=== PATIENT | male | born 1965 | race Caucasian/White ===

== ENCOUNTER 2021-01-07 21:38 | Emergency (ER) | payer OTHER, SELFPAY ==
--- NOTE | ~2021-01-07 | XR_ITS ---
EXAMINATION: XR CHEST CLINICAL INFORMATION: Fall COMPARISON: None TECHNIQUE: Frontal view of the chest was obtained. FINDINGS: There are mild streaky opacities within the lower lungs bilaterally, potentially subsegmental atelectasis, however infiltrate or aspiration could also have this appearance. No pleural effusion or pneumothorax. Normal heart size and pulmonary vascularity. No acute or suspicious osseous abnormalities. XR/XR chest 1V IMPRESSION: No displaced rib fractures or pneumothorax. Bilateral lower lung streaky opacities with diagnostic considerations as above
--- NOTE | ~2021-01-07 | CT_ITS ---
EXAMINATION: CT CHEST WITHOUT CONTRAST CLINICAL INFORMATION: Sternal pain status post trauma COMPARISON: None TECHNIQUE: Multidetector volumetric CT imaging of the chest was done. Axial MIP volume rendering provided. Sagittal and coronal reformatted images were obtained. This CT examination was performed using dose optimization techniques as appropriate, variously including the following: *Automated exposure control *Adjustment of mA and/or kV according to patient size (this includes techniques or standardized protocols for targeted exams where dose is matched to indication/reason for exam; i.e. extremities or head) *Use of iterative reconstruction technique DLP: 343 mGy-cm FINDINGS: LUNGS: Mild upper lobe predominant centrilobular emphysema. Mild diffuse bronchial wall thickening without bronchiectasis. There are scattered pulmonary nodules measuring 4 mm or less throughout both lungs (see vaughan images). No groundglass disease. No parenchymal consolidation or pneumothorax. MEDIASTINUM: Normal heart size. No pericardial effusion. No new cephalhematoma. Great vessels normal caliber. PLEURA: There is no pleural effusion. No pleural mass or thickening. AXILLA: No lymphadenopathy. UPPER ABDOMEN: Unremarkable. OSSEOUS STRUCTURES: There is a nondisplaced transversely oriented fracture through the upper sternum at the level of the third costal cartilage, with interval inward buckling of the outer cortex. Fracture is not appear to involve the posterior cortex of the sternum. Sternomanubrial articulation intact. No rib fractures. CT/CT chest wo con IMPRESSION: * Nondisplaced unicortical fracture involving the upper sternum as described. * No additional fractures. * Minimal emphysema and medium airway inflammation. * Scattered pulmonary nodules measuring 4 mm or less. Fleischner Society guidelines indicate that a follow-up CT chest can be performed in one year if clinically indicated in this presumptively high-risk patient.
[2021-01-07 21:41] VITALS: BMI 27.4
--- NOTE | 2021-01-07 21:42 | ECG_ITS ---
Test Reason : CHEST PAIN Blood Pressure : / mmHG Vent. Rate : 098 BPM Atrial Rate : 098 BPM P-R Int : 170 ms QRS Dur : 092 ms QT Int : 358 ms P-R-T Axes : 049 033 031 degrees QTc Int : 457 ms Normal sinus rhythm Normal ECG No previous ECGs available Referred By: Generic ED Physician Electronically Signed By:SUE SILVERIO
[2021-01-07 22:43] VITALS: BP 163/116; PULSE 98; RESP 18; O2SAT 96; BMI 27.4
--- NOTE | 2021-01-07 23:49 | ED.FALL ---
HPI - Fall General Chief Complaint: Fall Stated Complaint: body weakness, headache Time Seen by Provider: 01/07/21 23:15 Source: patient Mode of arrival: ambulatory Limitations: no limitations History of Present Illness HPI Narrative: 55 y/o male with history of untreated HTN presents to the ER with central chest pain in the setting of tripping and falling into a large plastic pipe earlier today. The fall knocked the wind out of him and he has had central chest pain since, worse with movement and coughing. He did not hit his head or lose consciousness. No other injuries. He is not on anticoagulation. He denies SOB or HERBERT. MD complaint: fall Onset (ago): hour(s) Fall from: standing Fall witnessed: yes, by bystander Place fall occurred: street Loss of consciousness: none Prolonged down time: no Symptoms prior to fall: none Context: tripped/slipped Location of injury: chest Severity: severe Severity scale (1-10): 10 Quality: sharp and aching Associated symptoms (after fall): chest pain Related Data Previous Rx's Medication Instructions Recorded oxycodone 5 mg tablet 5 mg PO Q6H PRN #10 tab 01/08/21 Allergies Allergy/AdvReac Type Severity Reaction Status Date / Time No Known Allergies Allergy Verified 01/07/21 21:42 Review of Systems Review of Systems: Constitutional: No Fever, No Chills ENT/Mouth: No sore throat, No Rhinorrhea, No Swallowing Difficulty Cardiovascular: + Chest Pain, No SOB, No Orthopnea, No Edema Respiratory: No Cough, No Sputum, No Wheezing, No dyspnea Gastrointestinal: No Nausea, No Vomiting, No Diarrhea, No abdominal Pain Genitourinary: No Dysuria, No Urinary Frequency, No Hematuria Musculoskeletal: No joint pain, No Myalgias Skin: No Skin Lesions, No rash Neuro: No Weakness, No Numbness, No Dizziness, No Headache Heme/Lymph: No Bruising, No Lymphadenopathy PMFSH Past Medical History Attestation statement: The following information was validated with the patient. Medical History (Updated 01/08/21 @ 01:00 by JONATHON Parker) Hypertension Social History Social History Advance Directives: No Advance Directives Information Provided: Yes Physical Exam Vital Signs: Vital Signs: Last Vital Signs Pulse 98 01/07/21 22:43 Resp 18 01/07/21 22:43 BP 163/116 H 01/07/21 22:43 Pulse Ox 96 01/07/21 22:43 Body Mass Index 27.4 Appearance: Alert. Oriented X3. No acute distress. Eyes: Pupils equal, round and reactive to light. ENT: Pharynx normal. Neck: Normal inspection. Neck supple. CVS: Normal heart rate and rhythm. Pulses normal. Respiratory: No respiratory distress. Breath sounds normal. Upper sternal tenderness, no crepitus Abdomen: Soft and nontender. +BS x4 Skin: Skin warm and dry. Normal skin color. Normal skin turgor. No rashes. Extremities: No lower extremity edema. Atraumatic Neuro: Oriented X 3. No motor deficit. No sensory deficit. Course Course Course Narrative: 55 y/o male presenting with central chest pain s/p slip and fall onto a plastic pipe. XR is negative for acute fracture. EKG without STEMI. Given his tenderness on exam will get CT chest to r/o fracture. Reevaluation(s) Reevaluation #1: CT scan showing There is a nondisplaced transversely oriented fracture through the upper sternum at the level of the third costal cartilage, with interval inward buckling of the outer cortex. Fracture is not appear to involve the posterior cortex of the sternum. Sternomanubrial articulation intact. No rib fractures. No signs of other injuries. Abd is soft. He is breathing comfortably. He has an appointment with his PCP on 01/10. Will d/c with narcotic for pain control and have him f/u with his PCP. Stable for discharge home. Discharge Plan Discharge Clinical Impression: Sternal fracture Qualifiers: Encounter type: initial encounter Sternal location: body of sternum Fracture type: closed Qualified Code(s): S22.22XA - Fracture of body of sternum, initial encounter for closed fracture Patient Disposition: Home, Self-Care Additional Instructions: Your CT scan today showed a fracture of your breast bone, also known as your sternum. It is important to have close follow up with your doctor for this. Recommend taking several deep breaths per hour to keep your lungs well expanded and prevent pneumonia. Take the prescribed medication as needed for severe pain - do not drive after taking this medication. Take Tylenol and Motrin as directed for pain as well. Follow up with your doctor as scheduled on 01/10/21. If you develop new or worsening symptoms call 911 or come back to the ER for further evaluation. Prescriptions: New oxycodone 5 mg tablet 5 mg PO Q6H PRN (Reason: pain) Qty: 10 RF: 0
[2021-01-08] MEDS: Acetaminophen 325 MG TABLET 975 MG PO (00:09)
[2021-01-08] MEDS: oxyCODONE HCl Immed Release 5 MG TABLET PO (01:12)
== END 2021-01-08 01:16 | disposition home or self-care (01) ==
PROVIDERS: Emergency Provider Emergency Medicine; PCP Internal Medicine
DX: S22.22XA Fracture of body of sternum, initial encounter for closed fracture (principal); M79.10 Myalgia, unspecified site; M54.6 Pain in thoracic spine; R07.9 Chest pain, unspecified; I10 Essential (primary) hypertension; W01.0XXA Fall on same level from slipping, tripping and stumbling without subsequent striking against object, initial encounter; Y93.9 Activity, unspecified; Y92.9 Unspecified place or not applicable; Y99.9 Unspecified external cause status; Z79.899 Other long term (current) drug therapy
CPT/HCPCS: 71045; 71250; 93005; 99285

== ENCOUNTER → 2025-02-07 08:15 | Outpatient (BNV) | payer MEDICAID, SELFPAY | PROVIDERS: Admitting Provider Physician Assistant Medical; Emergency Provider Emergency Medicine; PCP Dentist General Practice; Visit Provider Psychiatry & Neurology Neurology | DX: R40.0 Somnolence (principal); Z86.79 Personal history of other diseases of the circulatory system | CPT/HCPCS: 95819 ==

== ENCOUNTER 2025-02-07 16:58 | Inpatient (IN) | payer MEDICAID, SELFPAY ==
[2025-02-07] VITALS (32 sets, daily range): BP systolic 83–221; BP diastolic 46–120; PULSE 53–160; RESP 16–35; TEMP 33–37; O2SAT 95–100; BMI 29.0; BMI 26.7; BMI 28.5
--- NOTE | 2025-02-07 | EEG_ITS ---
Roomed Performed:?1st floor Reason: ? seizure History: H/O hypertension - Patient was brought to ED for increasing somnolent and obtunded, upon arrival to ED patient was unresponsive. Patient was given Narcan and then noted to have some staring and gazing. Patient was sedated and intubated for airway protection. Medication: propofol, fentanyl, naloxone Technical description Photic stimulation: completed Hyperventilation:?omitted Behavioral state: pt sedated, sedation turned of at start of tracing State of Consciousness: awake and sleep Skull defect: none Sedation: none Handedness: unknown Duration of study:? 26 min ?30 sec Description: This is a 16 channel EEG with an EKG lead. Patient is reported awake and sleep during the tracing. Background EEG rhythm is low amplitude fast with no obvious asymmetry or paroxysmal tendency. Photic stimulation does not produce any significant abnormality. Hyperventilation is not performed. Cardiac lead does not reveal any significant abnormality. No sharp wave spikes or paroxysmal tendency noted. Impression: Unremarkable EEG MTDD
--- NOTE | ~2025-02-07 | CT_ITS ---
CLINICAL HISTORY: altered CT head without contrast Comparison: None provided Findings: Scattered subcortical and periventricular hypoattenuation, likely in keeping with chronic small vessel ischemic disease. Parenchymal volume loss with compensatory prominence of the ventricles and CSF spaces. No acute territorial infarction, intracranial hemorrhage, midline shift or hydrocephalus. Encephalomalacia/gliosis in the posterior left parietal lobe and occipital lobe. Cavum septum pellucidum and vergae. There is no sinus or mastoid fluid. The orbits are within normal limits. No skull fracture. IMPRESSION: 1. No acute intracranial abnormality. 2. Additional findings as described. This document has been electronically signed by: Kushal Santana MD on 02/07/2025 18:09:11
--- NOTE | ~2025-02-07 | XR_ITS ---
CLINICAL HISTORY: post-intubation 1 view chest x-ray Comparison: None provided Findings: Mild left lower lobe atelectasis. No significant pleural effusion or pneumothorax. ETT tip terminates 3.5 cm above gilberto. Prominent cardiac silhouette. No acute fracture. Enteric tube tip projects over the distal stomach. IMPRESSION: 1. ETT tip terminates 3.5 cm above gilberto. 2. Mild left lower lobe atelectasis. This document has been electronically signed by: Kushal Santana MD on 02/07/2025 18:10:02
--- NOTE | 2025-02-07 17:02 | ECG_ITS ---
Test Reason : overdose Blood Pressure : */* mmHG Vent. Rate : 96 BPM Atrial Rate : 96 BPM P-R Int : 164 ms QRS Dur : 88 ms QT Int : 388 ms P-R-T Axes : 65 44 23 degrees QTcB Int : 490 ms Normal sinus rhythm Prolonged QT Abnormal ECG When compared with ECG of 07-Jan-2021 21:46, No significant change was found Referred By: Allen Anders Electronically Signed By: LB FITZPATRICK MD
--- NOTE | 2025-02-07 17:02 | ED.GENADULT ---
HPI - General Adult General Chief complaint: Respiratory Arrest Stated complaint: OD Time Seen by Provider: 02/07/25 17:01 History of Present Illness ED Provider: Chago STEINBERG narrative: The patient is a 59-year-old male. He has a history of hypertension in his family thinks that he is on an antihypertensive medication but they do not know what he is on. Apparently he was in his normal state of health earlier today and seemed fine according to his family. This afternoon he in his brother when shopping. After shopping the brother dropped the patient off to meet some other people. Later the patient called the brother to pick him up. The brother says that when he picked up the patient the patient was awake. The brother then drove to their house in [place]. By the time they got to their house however the patient was unresponsive. The brother summoned family members. The patient's daughter came out and could not wake up the patient. She then drove him from [place] to the emergency room here. Apparently the patient was unconscious in the car and had to be lifted out of the car. He was unresponsive and cyanotic. He was given nasal naloxone and brought into the emergency room. After receiving the naloxone the patient became very animated but not awake. He was flailing his extremities and seemed to be staring off to the left. He would not answer questions or engage. He was nonverbal. The family suspects that the people with whom the patient has been dropped off earlier today might have given him drugs. Related Data Previous Rx's ?Medication ?Instructions ?Recorded oxycodone 5 mg tablet 5 mg PO Q6H PRN pain #10 tabs 01/08/21 Allergies Allergy/AdvReac Type Severity Reaction Status Date / Time No Known Allergies Allergy Verified 02/07/25 17:09 Review of Systems Review of Systems: Yes Unobtainable due to mental status [facility] Past Medical History Medical History Hypertension Social History Social History Household Members: Unknown / Unable to assess Housing: Unknown / Unable to assess Patient Tobacco Use Status: Tobacco use Unknown Advance Directives: No Advance Directives Information Provided: No Do you have a plan to hurt others: No Plan Nutrition Risks: On aspiration precautions Physical Exam ED Vital Signs: Vital Signs - 24 hr 02/07/25 17:06 02/07/25 17:17 02/07/25 17:18 Temperature Pulse Rate 160 H 140 H 140 H Respiratory Rate 35 H 35 H 35 H Blood Pressure 163/101 H 141/82 H 141/82 H Pulse Oximetry 95 Oxygen Delivery Method Room Air Oxygen Flow Rate Fraction of Inspired Oxygen 02/07/25 17:20 02/07/25 17:24 02/07/25 17:24 Temperature Pulse Rate 130 H 120 H Respiratory Rate 18 16 18 Blood Pressure 148/92 H 120/79 Pulse Oximetry 100 100 Oxygen Delivery Method Mechanical Ventilation Mechanical Ventilation Oxygen Flow Rate 25 25 Fraction of Inspired Oxygen 02/07/25 17:39 02/07/25 17:49 02/07/25 17:49 Temperature Pulse Rate 151 H 146 H 146 H Respiratory Rate 16 20 20 Blood Pressure 221/115 H 200/120 H 200/100 H Pulse Oximetry 99 99 99 Oxygen Delivery Method Mechanical Ventilation Oxygen Flow Rate Fraction of Inspired Oxygen 02/07/25 17:51 02/07/25 17:57 02/07/25 18:02 Temperature 97.3 F Pulse Rate 130 H 137 H Respiratory Rate 22 H 21 H Blood Pressure 183/107 H 192/114 H Pulse Oximetry 100 100 Oxygen Delivery Method Mechanical Ventilation Mechanical Ventilation Oxygen Flow Rate Fraction of Inspired Oxygen 60 100 02/07/25 18:06 02/07/25 18:22 02/07/25 18:28 Temperature Pulse Rate 129 H 125 H 128 H Respiratory Rate 20 24 H 22 H Blood Pressure 183/112 H 170/109 H 182/105 H Pulse Oximetry 99 100 100 Oxygen Delivery Method Oxygen Flow Rate Fraction of Inspired Oxygen 02/07/25 18:38 02/07/25 18:59 02/07/25 19:14 Temperature 97 F 97.2 F 97.3 F Pulse Rate 100 96 84 Respiratory Rate 20 20 18 Blood Pressure 105/64 143/93 H 121/73 Pulse Oximetry 98 100 100 Oxygen Delivery Method Mechanical Ventilation Mechanical Ventilation Mechanical Ventilation Oxygen Flow Rate Fraction of Inspired Oxygen 40 40 BMI result Body Mass Index 26.7 Const Other: When I 1st encountered the patient he was being wheeled into the emergency room after having received nasal naloxone out front. He was flailing in the stretcher, staring off to the left, not answering questions. HENMT Other: There was no obvious facial asymmetry. Mucous membranes were moist. Eyes Other: The patient seemed to have a left gaze preference. Pupils were round and equal. Conjunctivae were clear. Neck Other: No obvious nuchal rigidity. Resp Effort & Inspection: normal respiratory effort Auscultation: clear to auscultation bilaterally Cardio Rate: tachycardic Rhythm: regular rhythm Heart sounds: S1 normal heart sound present and S2 normal heart sound present GI Other: Abdomen was soft and seems nontender. Skin Other: The skin was diaphoretic. Neuro Other: The patient had an altered mental status. He was flailing his extremities. He seemed to possibly have a left gaze preference. He was not responding to questions and he did not seem coherent. I was uncertain as to whether his abnormal movements were seizure movements or some some kind of manifestation of discomfort. He was nonverbal. He did not seem to have any facial asymmetry. His tone seems symmetrical. Extrem Other: No signs of trauma to the extremities. No peripheral edema. Course Course Course Narrative: This is an RME done by JONATHON Fleming: Additional HPI, ROS, PE not included below will be deferred to primary provider. 59 yo m presents via private veichle. Patient was unresponsive in the front seat. When this PA-C and triage nurse arrived patient was not breathing. 1 4mg intranasal narcan was given without response an additional 4 mg intranasal narcan was given still no response he was carried out of his veichle and put on a stretcher, immediatly this PA-C began bagging. Patient started waking up after about 1 minute of bagging. He woke up aggitated and disoriented. No signs of trauma. Family state he kind of has a drug problem. Unclear what he took. Medications Administered Generic Name Dose Route Start Last Admin Trade Name Freq PRN Reason Stop Dose Admin Chlorhexidine Gluconate 15 ml 02/07/25 19:27 02/07/25 20:18 Chlorhexidine Gluc Oral Rinse 15 Ml Mouthwash BUCCAL Not Given TID REGGIE Enoxaparin Sodium 40 mg 02/07/25 20:00 02/07/25 20:17 Enoxaparin Sodium 40 Mg/0.4 Ml Syringe SUBCUT 40 mg Q24H REGGIE Administration Propofol 1,000 mg in 100 mls @ 0 mls/hr 02/07/25 17:30 02/07/25 21:37 Diprivan IVCONT 40 mcg/kg/min .Q0M REGGIE 19.6 mls/hr Protocol Titration Per Protocol Fentanyl 1,000 mcg in 100 mls @ 0 mls/hr 02/07/25 18:30 02/07/25 21:34 Sublimaze/Ns IVCONT 75 mcg/hr .Q0M REGGIE 7.5 mls/hr Protocol Titration Per Protocol Piperacillin Sod/Tazobactam 50 mls @ 100 mls/hr 02/07/25 20:00 02/07/25 20:31 Sod 3.375 gm/ Sodium Chloride IV Infused Q6H REGGIE Infusion Insulin Human Lispro 0 unit 02/07/25 19:30 02/07/25 20:06 Insulin Lispro 100 Unit/Ml 3 Ml Vial SUBCUT Not Given Q6H [facility] Protocol Discontinued Medications Generic Name Dose Route Start Last Admin Trade Name Freq PRN Reason Stop Dose Admin Diazepam 10 mg 02/07/25 17:01 02/07/25 17:06 Diazepam 10 Mg/2 Ml Cartridge IVPUSH 02/07/25 17:02 10 mg STAT STA Administration Levetiracetam 3,000 mg/ Sodium 130 mls @ 520 mls/hr 02/07/25 18:40 02/07/25 19:20 Chloride IV 02/07/25 18:54 Infused ONCE ONE Infusion Lactated Ringer's 1,000 mls @ 999 mls/hr 02/07/25 19:45 02/07/25 21:11 Lr IV 02/07/25 20:45 Infused .Q1H1M REGGIE Infusion Lactated Ringer's 1,000 mls @ 999 mls/hr 02/07/25 20:30 02/07/25 21:11 Lr IV 02/07/25 21:30 999 mls/hr .Q1H1M REGGIE Administration Morphine Sulfate 4 mg 02/07/25 17:21 02/07/25 17:24 Morphine Sulfate 4 Mg/Ml Cartridge IVPUSH 02/07/25 17:22 4 mg ONCE ONE Administration Protocol Propofol 100 mg 02/07/25 17:51 02/07/25 17:17 Propofol 200 Mg/20 Ml Vial IVPUSH 02/07/25 17:52 100 mg ONCE ONE Administration Propofol 100 mg 02/07/25 18:35 02/07/25 18:36 Propofol 200 Mg/20 Ml Vial IVPUSH 02/07/25 18:36 100 mg ONCE ONE Administration Rocuronium [place] 80 mg 02/07/25 17:51 02/07/25 17:18 Rocuronium [place] 50 Mg/5 Ml Vial IVPUSH 02/07/25 17:52 80 mg ONCE ONE Administration Medical Decision Making Medical Decision Making [facility] Narrative: The patient is a 59-year-old male who was brought into the emergency room from a private vehicle. Apparently in the private vehicle he was unresponsive and cyanotic. He was given naloxone nasally. This seemed to have a dramatic reaction with the patient displaying dramatic flailing body movements and hyperventilation and diaphoresis. He was not coherent and did not respond to questions. He was very tachycardic and was also hypertensive and tachypneic. He was given 10 mg of IV diazepam which seemed to calm him down somewhat but my overall impression was that he was still extremely incoherent and I do not feel that he will be able to lie still for a CAT scan and I also was not confident that he was protecting his airway. The patient was therefore intubated with propofol and rocuronium. The intubation was straight forward. Post intubation he was given IV morphine and placed on a propofol drip and sent for a stat CAT scan of the head. A CAT scan of the head was negative. Labs were sent including a urine tox screen which was positive for opioids and fentanyl. The patient is not prescribed any opioids. I suspect that he probably had an overdose of heroin and fentanyl. Although he was placed on a propofol drip which was rapidly titrated to its maximum dosage he remained tachycardic and hypertensive. As we were starting a fentanyl drip I gave an additional bolus of 100 mg of IV propofol at which time he seemed to be come much calmer with the an improvement in his heart rate. Although naloxone administration does not usually precipitate a seizure I felt at that point that covering him with levetiracetam would also be reasonable. The patient's family was in the emergency room and I spoke to them about the patient's course. The patient has labs were largely unremarkable. The patient was admitted to the intensive care unit. Lab Data 02/07/25 17:17 02/07/25 17:17 Labs: Lab Results 02/07/25 02/07/25 02/07/25 Range/Units 17:03 17:17 18:01 WBC 14.4 H (4.8-10.8) X10*3/uL RBC 5.43 (4.60-5.80) X10*6/uL Hgb 16.7 (14.0-18.0) g/dl Hct 48.5 (42.0-52.0) % MCV 89.3 (80.0-98.0) fL MCH 30.8 (27.0-33.0) pg MCHC 34.4 (31.0-36.0) g/dl RDW 13.3 (11.0-16.0) % Plt Count 331 (160-400) X10*3/uL MPV 9.8 (9.4-12.4) fL Immature Gran % (Auto) Cancelled Neut % (Auto) Cancelled Lymph % (Auto) Cancelled [place] % (Auto) Cancelled Eos % (Auto) Cancelled Baso % (Auto) Cancelled Lymph # (Auto) Cancelled [place] # (Auto) Cancelled Eos # (Auto) Cancelled Baso # (Auto) Cancelled Abs Immat Gran (auto) Cancelled Absolute Neuts (auto) Cancelled Absolute Nucleated RBC 0.000 (0.0-0.012) X10*3/uL Nucleated RBC % (auto) 0.0 (0.0-0.2) /100WBC Neutrophils % (Manual) 69 (45-73) % Lymphocytes % (Manual) 24 (20-40) % Atypical Lymphs % (Man) 1 (0-6) % Monocytes % (Manual) 5 (2-11) % Eosinophils % (Manual) 1 (0-4) % Abs Neuts (Manual) 9.9 H (2.0-8.3) X10*3/uL Lymphocytes # (Manual) 3.5 (1.2-4.9) X10*3/uL Atyp Lymphs # (Manual) 0.1 x10*3/uL Monocytes # (Manual) 0.7 (0.1-1.2) X10*3/uL Eosinophils # (Manual) 0.1 (0.0-0.4) X10*3/uL Smudge Cells PRESENT Platelet Estimate NORMAL (NORMAL) Plt Morphology Comment NORMAL RBC Morphology NOTED PT 11.6 (10.9-12.4) SEC INR 1.0 (0.9-1.1) O2 Saturation % ABG pH at Pt Temp (7.35-7.45) ABG pCO2 at Pt Temp (32-45) mmHg ABG pO2 at Pt Temp (83-108) mmHg ABG HCO3 (22-26) mmol/L ABG Base Excess (Actual) mmol/L Sodium 143 (135-145) mmol/L Potassium 3.6 (3.3-5.1) mmol/L Chloride 108 (96-108) mmol/L Carbon Dioxide 16 L (22-29) mmol/L Anion Gap 23 H (12-20) BUN 16 (9-16) mg/dL Creatinine 1.33 (0.5-1.4) mg/dL Estim Creat Clear Calc 53.2 Estimated GFR 55 POC Glucose 186 H (60-115) mg/dL Random Glucose 197 H (60-115) mg/dL Calcium 9.1 (8.4-10.2) mg/dL Magnesium 2.0 (1.6-2.6) mg/dL Total Bilirubin 0.5 (0.0-1.0) mg/dL Direct Bilirubin 0.2 (0.0-0.5) mg/dL AST 24 (5-37) U/L ALT 16 (0-40) U/L Alkaline Phosphatase 79 (39-117) U/L Troponin I High Sens < 2.7 (<3.5-35.0) ng/L Total Protein 7.2 (6.5-8.0) g/dL Albumin 4.7 (3.5-5.0) g/dL Urine Color Yellow Urine Appearance Clear Urine pH 6.0 (5.0-9.0) Ur Specific [place] 1.020 (1.005-1.025) Urine Protein Trace (Neg-Trace) mg/dL Urine Glucose (UA) Negative (Negative) mg/dL Urine Ketones Negative (Negative) mg/dL Urine Blood Negative (Negative) Urine Nitrite Negative (Negative) Ur Leukocyte Esterase Negative (Negative) Urine Opiates Screen POSITIVE H (Not Detect) Ur Buprenorphine Scrn Not Detected (Not Detect) ng/mL Ur Oxycodone Screen Not Detected (Not Detect) ng/mL Urine Methadone Screen Not Detected (Not Detect) ng/mL Urine Fentanyl Screen POSITIVE H (Not Detect) Ur Barbiturates Screen Not Detected (Not Detect) Ur Phencyclidine Scrn Not Detected (Not Detect) Ur Amphetamines Screen Not Detected (Not Detect) U Benzodiazepines Scrn Not Detected (Not Detect) Urine Cocaine Screen Not Detected (Not Detect) U Marijuana (THC) Screen POSITIVE H (Not Detect) Ethyl Alcohol < 10 mg/dL 02/07/25 Range/Units 18:15 WBC (4.8-10.8) X10*3/uL RBC (4.60-5.80) X10*6/uL Hgb (14.0-18.0) g/dl Hct (42.0-52.0) % MCV (80.0-98.0) fL MCH (27.0-33.0) pg MCHC (31.0-36.0) g/dl RDW (11.0-16.0) % Plt Count (160-400) X10*3/uL MPV (9.4-12.4) fL Immature Gran % (Auto) Neut % (Auto) Lymph % (Auto) [place] % (Auto) Eos % (Auto) Baso % (Auto) Lymph # (Auto) [place] # (Auto) Eos # (Auto) Baso # (Auto) Abs Immat Gran (auto) Absolute Neuts (auto) Absolute Nucleated RBC (0.0-0.012) X10*3/uL Nucleated RBC % (auto) (0.0-0.2) /100WBC Neutrophils % (Manual) (45-73) % Lymphocytes % (Manual) (20-40) % Atypical Lymphs % (Man) (0-6) % Monocytes % (Manual) (2-11) % Eosinophils % (Manual) (0-4) % Abs Neuts (Manual) (2.0-8.3) X10*3/uL Lymphocytes # (Manual) (1.2-4.9) X10*3/uL Atyp Lymphs # (Manual) x10*3/uL Monocytes # (Manual) (0.1-1.2) X10*3/uL Eosinophils # (Manual) (0.0-0.4) X10*3/uL Smudge Cells Platelet Estimate (NORMAL) Plt Morphology Comment RBC Morphology PT (10.9-12.4) SEC INR (0.9-1.1) O2 Saturation 100.0 % ABG pH at Pt Temp 7.39 (7.35-7.45) ABG pCO2 at Pt Temp 33 (32-45) mmHg ABG pO2 at Pt Temp 193 H (83-108) mmHg ABG HCO3 20 L (22-26) mmol/L ABG Base Excess (Actual) -3.2 mmol/L Sodium (135-145) mmol/L Potassium (3.3-5.1) mmol/L Chloride (96-108) mmol/L Carbon Dioxide (22-29) mmol/L Anion Gap (12-20) BUN (9-16) mg/dL Creatinine (0.5-1.4) mg/dL Estim Creat Clear Calc Estimated GFR POC Glucose (60-115) mg/dL Random Glucose (60-115) mg/dL Calcium (8.4-10.2) mg/dL Magnesium (1.6-2.6) mg/dL Total Bilirubin (0.0-1.0) mg/dL Direct Bilirubin (0.0-0.5) mg/dL AST (5-37) U/L ALT (0-40) U/L Alkaline Phosphatase (39-117) U/L Troponin I High Sens (<3.5-35.0) ng/L Total Protein (6.5-8.0) g/dL Albumin (3.5-5.0) g/dL Urine Color Urine Appearance Urine pH (5.0-9.0) Ur Specific [place] (1.005-1.025) Urine Protein (Neg-Trace) mg/dL Urine Glucose (UA) (Negative) mg/dL Urine Ketones (Negative) mg/dL Urine Blood (Negative) Urine Nitrite (Negative) Ur Leukocyte Esterase (Negative) Urine Opiates Screen (Not Detect) Ur Buprenorphine Scrn (Not Detect) ng/mL Ur Oxycodone Screen (Not Detect) ng/mL Urine Methadone Screen (Not Detect) ng/mL Urine Fentanyl Screen (Not Detect) Ur Barbiturates Screen (Not Detect) Ur Phencyclidine Scrn (Not Detect) Ur Amphetamines Screen (Not Detect) U Benzodiazepines Scrn (Not Detect) Urine Cocaine Screen (Not Detect) U Marijuana (THC) Screen (Not Detect) Ethyl Alcohol mg/dL Critical Care Time Critical Care Time Critical Care Time: Yes Total Critical Care Time: 60 Attestation: The patient was critically ill with a high probability of imminent or life-threatening deterioration. ?I spent greater than 30 minutes of discontinuous time evaluating the patient, delivering critical care at the bedside, discussing evaluating data with consultants. ?Critical care time does not include time spent performing separately billable procedures or teaching. ?Time spent performing critical care with 60 minutes. Discharge Plan Discharge Clinical Impression: Altered mental status, Opioid overdose Patient Disposition: Admitted As Inpatient Interventions: Admission Worksheet (ED) Last Done: 02/07/25 19:58 Discharge Date/Time: 02/07/25 19:59
[2025-02-07] MEDS: diazePAM 10 MG/2 ML CARTRIDGE IVPUSH (17:06)
[2025-02-07 17:23] LABS: Glucose, Whole Blood 186 mg/dL (60-115)
[2025-02-07 17:24] LABS: Hematocrit 48.5 % (42.0-52.0); Hemoglobin 16.7 g/dl (14.0-18.0); Mean Corpuscular HGB Conc 34.4 g/dl (31.0-36.0); Mean Corpuscular Hemoglobin 30.8 pg (27.0-33.0); Mean Corpuscular Volume 89.3 fL (80.0-98.0); NRBC Abs Auto 0.000 X10*3/uL (0.0-0.012); NRBC Pct Auto 0.0 /100WBC (0.0-0.2); Platelet Count 331 X10*3/uL (160-400); Red Blood Count 5.43 X10*6/uL (4.60-5.80); White Blood Count 14.4 X10*3/uL (4.8-10.8)
[2025-02-07 17:28] LABS: INTERNATIONAL NORM RATIO 1.0 (0.9-1.1); Prothrombin Time 11.6 SEC (10.9-12.4)
--- NOTE | 2025-02-07 17:28 | PC.NURSE ---
EVENT SUMMARY: Pt dropped off by PV unconscious and cyanotic per triage staff, router operator pin gave narcan nasally 4 mg and pt was brought back. After narcan pt noted to have irregular breathing, unresponsive, dilated pupils and restless behavior. IV access obtained bilat, labs sent. Pt noted to be tachy on monitor, htn, breathing rapid. MD, RT, multiple RNs and techs at bedside. Unable to get full history and accurate story at this time. Decision made to intubate by MD. Intubation summary: 1717: 100 mg of Propofol IVP 1718: 80 mg of Parker IVP 1719: pt successfully intubated by MD Anders with 7.5 ETT, 25 @lip, + colormetric and bilat breaths sounds/ bilat chest rise, - epigastric sounds 1724: 4mg of morphine pushed and pt brought to CT scan
--- NOTE | 2025-02-07 17:36 | PC.NURSE ---
Vent settings per RT: RR 16 TV 380 Peep 5.0 100%
[2025-02-07 17:39] LABS: Alanine Aminotransferase 16 U/L (0-40); Albumin Level 4.7 g/dL (3.5-5.0); Alkaline Phosphatase 79 U/L (39-117); Anion Gap 23 (12-20); Aspartate Amino Transferase 24 U/L (5-37); Blood Urea Nitrogen 16 mg/dL (9-16); Calcium 9.1 mg/dL (8.4-10.2); Carbon Dioxide 16 mmol/L (22-29); Chloride 108 mmol/L (96-108); Creatinine Clr Calc Pharmacy 53.2; Estimated Glomerular Filt Rate 55; Magnesium 2.0 mg/dL (1.6-2.6); Potassium 3.6 mmol/L (3.3-5.1); Sodium 143 mmol/L (135-145); Total Protein 7.2 g/dL (6.5-8.0)
[2025-02-07 17:45] LABS: Atypical Lymph Absolute Manual 0.1 x10*3/uL; Atypical Lymphs Percent Manual 1 % (0-6); Eosinophils Absolute Manual 0.1 X10*3/uL (0.0-0.4); Eosinophils Percent Manual 1 % (0-4); Lymphocytes Absolute Manual 3.5 X10*3/uL (1.2-4.9); Lymphocytes Percent Manual 24 % (20-40); Monocytes Absolute Manual 0.7 X10*3/uL (0.1-1.2); Monocytes Percent Manual 5 % (2-11); Neutrophils Percent Manual 69 % (45-73); RBC Morphology NOTED; Smudge Cells PRESENT
[2025-02-07 17:46] LABS: Neutrophils Absolute Manual 9.9 X10*3/uL (2.0-8.3)
[2025-02-07 17:47] LABS: Troponin-I High Sensitivity < 2.7 ng/L (<3.5-35.0)
--- OUTSIDE RECORDS SUMMARY | 2025-02-07 17:48 | XMS_ITS | Encounter Summary ---
Author Organization [facility] Address [address] [place] [address] Care Team Providers Care Assistant Track Coach Name Role Phone AtulSam judd SUPERINTENDENT TESTS Primary Care Provider [phone]- [phone] Reason for Visit * Reason Onset Date Comments SPECIAL PROCEDURE 02/04/2025 Encounter Details Date Type Department Care Team (Late st Contact Info) Description 02/04/2025 Telephone Gastroenterology - [place] [address] [place] [address] Racheal Alatorre MD [address] [facility] [address] [place], [place] [id number] Social History Tobacco Use Types Packs/Day Years Used Date Smoking Tobacco: Never Assessed Sex and Gender Information Value Date Recorded Sex Assigned at Not on file Legal Sex Male 5:41 AM EST Gender Identity Not on file Sexual Orientation Not on file documented as of this encounter Progress Notes * Cielo Gerber MA - 02/05/2025 1:33 PM EDT 1st attempt to schedule an appointment VM FULL POSITIVE COLOGUARD-ANY * Suyapa Andre MA - 02/04/2025 4:13 PM EDT Meds and allergies updated given to schedulers * Jeana Ferraro - 02/04/2025 11:36 AM EDT Records received from [facility] for URGENT colonoscopy + cologuard, given to Leslie to update meds & allergies documented in this encounter Plan of Treatment Not on file documented as of this encounter Visit Diagnoses Not on filedocumented in this encounter Historical Medications * This list may reflect changes made after this encounter. varenicline tartrate (CHANTIX) 1 mg tablet Take 1 tablet (1 mg total) by mouth 2 (two) times daily after breakfast and dinner. Take with full glass of water. naproxen (EC NAPROSYN) 500 mg EC tablet Take 1 tablet (500 mg total) by mouth 1 (one) time each day with breakfast. Do not crush, chew, or split. losartan (COZAAR) 25 mg tablet Take 1 tablet (25 mg total) by mouth 1 (one) time each day. added in this encounter Care Teams Assistant Track Coach Relationship Specialty Start Date End Date Sam Pollard NP [address] [place] [address] PCP - General Nurse Practitioner 02/04/25 documented as of this encounter
--- OUTSIDE RECORDS SUMMARY | 2025-02-07 17:48 | XMS_ITS | Clinical Summary ---
Author Organization [facility] Address [address] [place], [place] [id number] Phone Care Team Providers Care Health Navigator Name Role Phone Pcp, Unknown Primary Care Provider Unavailabl e Allergies No known active allergies Medications losartan (COZAAR) 25 MG tablet Take 1 tablet (25 mg total) by mouth daily. 30 tablet 2022 Active lisinopril (PRINIVIL,ZESTRI L) 5 MG tablet Take 1 tablet (5 mg total) by mouth daily. 30 tablet 2022 Active Social History Tobacco Use Types Packs/Day Years Used Date Smoking Tobacco: Never Assessed Education Answer Date Recorded Are you interested in more education? Not on stefany e 09/01/2022 Are you concerned about learning? Not on file 09/01/2022 No 09/01/2022 No 09/01/2022 Digital Access Answer Date Recorded No 09/30/2022 No 09/30/2022 No 09/30/2022 Reliable internet access at home? Not on file 09/30/2022 Device with a working camera? Not on file Sex and Gender Information Value Date Recorded Sex Assigned at Not on file Legal Sex Male 11:53 AM EST Gender Identity Not on file Sexual Orientation Not on file Last Filed Vital Signs Vital Sign Reading Time Taken Comments Blood Pressure 194/99 2022 6:18 PM EST Pulse 70 2022 6:18 PM EST Temperature 37.3 C (99.2 F) 2022 6:18 PM EST Respiratory Rate 18 2022 6:18 PM EST Oxygen Saturation 99% 2022 6:18 PM EST Inhaled Oxygen Concentration - - Weight 63.5 kg (140 lb) 2022 1:06 PM EST Height 165.1 cm (5' 5 ) 2022 1:06 PM EST Body Mass Index 23.3 2022 1:06 PM EST Plan of Treatment Health Maintenance Due Date Last Done Comments LIPID PANEL 1964 DEPRESSION SCREENING 1976 SMOKING Hx and SMOKELESS TOBACCO SCREENING 1977 HEPATITIS C SCREENING 1982 HIV ONE-TIME SCREENING (18-6 5 YEARS) 1982 COLOGUARD 2009 COLONOSCOPY 2009 COLORECTAL CANCER SCREENING 2009 FIT TEST 2009 FOBT 2009 SIGMOIDOSCOPY 2009 VIRTUAL COLONOSCOPY 2009 PNEUMOCOCCAL VACCINES (50+ years) (2 of 2 - PCV) 2014 01/14/2013 ZOSTER VACCINES (1 of 2) 2014 Adult Td,Tdap Booster 01/14/2023 01/14/2013 CREATININE LEVEL 2023 2022 POTASSIUM LEVEL 2023 2022 INFLUENZA VACCINE (#1) 2024 02/11/2013 COVID-19 VACCINE (1 - 2024-2 6 season) 2025 RSV VACCINE (1 - 1-dose 75+ series) 2039 HEPATITIS A VACCINES Aged Out 08/10/2013, 12/31/2012 No longer eligible based on patient's age to complete this topic HIB VACCINES Aged Out No longer eligi ble based on patient's age to complete this topic MENINGOCOCCAL VACCINES (ACWY) Aged Out No longer eligible based on patient's age to complete this topic MENINGOCOCCAL VACCINES (B) Aged Out N o longer eligible based on patient's age to complete this topic Medical Devices Not on file Procedures Procedure Name Priority Date/Time Associated Diagnosis Comments BASIC METABOLIC PANEL STAT 2022 4:25 PM EST from Last 3 Months or Most Recently Relevant to Health Maintenance Results * (ABNORMAL) Basic metabolic panel (2022 4:25 PM EST) SODIUM 141 133 - 146 mmol/L [facility] CHLORIDE 101 96 - 108 mmol/L [facility] POTASSIUM 3.8 3.3 - 5.1 mmol/L [facility] CO2 27 21 - 35 mmol/L [facility] BUN 18 6 - 19 mg/dL [facility] CREATININE 0.80 0.5 - 1.5 mg/dL [facility] GLUCOSE 127(H) 70 - 99 mg/dL [facility] CALCIUM 10.2 8.4 - 10.3 mg/dL [facility] EGFR 103 >59 mL/min/1.7 3m2 [facility] Comment:Estimated glomerular filtration rate calculated using the CKD-EPI refit equation. ANION GAP 17 10 - 20 mmol/L [facility] Blood 2022 4:25 PM EST 2022 4:30 PM EST us Chandler Preston MD LAB BLOOD ORDERABL ES Final Result [facility] [address] [place] [address] from Last 3 Months or Most Recently Relevant to Health Maintenance Insurance [facility] [employer] [employer] Care Teams Health Navigator Relationship Specialty Start Date End Date Pcp, Unknown PCP - General 06/01/22 Additional Source Comments The information contained in this document represents components of the legal health record. It is not the complete legal health record.[facility]
--- OUTSIDE RECORDS SUMMARY | 2025-02-07 17:48 | XMS_ITS | Clinical Summary ---
Author Organization [facility] Address [address] [place] [address] Care Team Providers Care Electronic Scale Subassembler Name Role Phone Sam Pollard BUILDING REPAIR MAINTENANCE SUPERVISOR Primary Care Provider [phone] Source Comments PLEASE NOTE, if this patient is a minor, it may be UNLAWFUL to discuss sensitive information that is contained in these records (such as FAMILY PLANNING, MENTAL HEALTH or SUBSTANCE ABUSE) with the minor patient's parent or other person without the patient's specific authorization.[facility] Allergies No known active allergies Medications losartan (COZAAR) 25 mg tabletIndications :Essential hypertension Take 1 Tablet by mouth once daily. 30 Tablet 3 12/08/2024 Active naproxen (NAPROSYN) 500 mg tabletIndications :Right sided sciatica Take 1 Tablet by mouth 2 (two) times daily with a meal. 60 Tablet 12/08/2024 Active varenicline tartrate (CHANTIX) 0.5 mg tabletIndications :Tobacco use disorder Take one tab daily days 1-3, then 1 tab BID days 4-7. 11 Tablet 12/08/2024 Active varenicline tartrate (CHANTIX) 1 mg tabletIndications :Tobacco use disorder Take 1 Tablet by mouth 2 (two) times daily. 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 One yr f/u recommended Hypertension 07/09/2018 Hypercholesterolemia 07/09/2018 Hepatitis C infection 07/09/2018 Overview (03/01/2019): 07-09-18 Hep C Ab + Hep C viral load Neg HIV negative Reports treatment at previous PCP Salvador Pang in 2018. Helicobacter pylori gastritis 07/09/2018 Chronic constipation 07/09/2018 Pain in both hands 07/09/2018 Resolved Problems Problem Noted Date Diagnosed Date Resolved Date 'Rotwu-gsa-glzii' infant wit h signs of malnutrition 07/14/2018 12/08/2024 Opioid use disorder, severe, on maintenance therapy, dependence 07/08/2018 11/16/2021 Encounters Date Type Department Care Team Description 02/04/2025 Results Follow-Up [facility] [address] [place] [id number] Sam Pollard FNP 12/08/2024 2:40 PM EDT Office Visit [facility] [address] [place] [phone] Sam Pollard FNP from Last 3 Months Social History Tobacco Use Types Packs/Day Years Used Date Smoking Tobacco: Some Days Cigarettes Smokeless Tobacco: Never Tobacco Cessation:Ready to Q uit: Not Asked; Counseling Given: Not Answered Alcohol Use Standard Drinks/Week Comments No 0 (1 standard drink = 0.6 oz pur e alcohol) Social Connections Answer Date Recorded Connectedness 0 08/31/2021 Financial Resource Strain Answer Date R ecorded Financial Resource Strain 0 2021 Stress Answer Date Recorded Stress 0 08/31/2021 Physical Activity Answer Date Recorded Physical Activity 0 08/31/2021 Food Insecurity Answer Date Recorded Food 0 08/31/2021 Transportation Needs Answer Date Record ed Transportation 0 08/31/2021 Housing Stability Answer Date Recorded Housing 0 08/31/2021 Safety and Environment Answer Date Xander rded Safety 0 08/31/2021 Utilities Answer Date Recorded Utilities 0 12/24/2018 Employment Answer Date Recorded Stress 0 08/31/2021 Sex and Gender Information Value Date Recorded Sex Assigned at Male 07/11/2018 10:04 AM PST Legal Sex Male 10:44 AM PDT Gender Identity Male 07/11/2018 10:04 AM PST Sexual Orientation Straight 07/11/2018 10 :04 AM PST Last Filed Vital Signs Vital Sign Reading Time Taken Comments Blood Pressure 122/77 12/08/2024 3:04 PM EDT Pulse 82 12/08/2024 3:04 PM EDT Temperature 36.9 C (98.4 F) 12/08/2024 3:04 PM EDT Respiratory Rate 18 12/08/2024 3:04 PM EDT Oxygen Saturation 99% 09/04/2021 11:29 AM EDT Inhaled Oxygen Concentration - - Weight 76.7 kg (169 lb 3.2 oz) 12/08/2024 3:04 P M EDT Height 165.1 cm (5' 5 ) 12/08/2024 3:04 PM EDT Body Mass Index 28.16 12/08/2024 3:04 PM EDT Plan of Treatment Health Maintenance Due Date Last Done Comments Syphilis Screening 06/02/1978 CT Colonography 2009 Flexible Sigmoidoscopy 2009 Imm-Pneumococcal 50+ (2 of 2 - PCV) 01/14/2014 01/14/2013 Imm-Zoster, Recombinant (1 of 2) 2014 Imm-DTaP/Tdap/Td (2 - Td or Tdap) 01/14/2023 013 [id number] (2 - season) 2025 023 Imm-Influenza (#1) 2025 02/11/2013 Colonoscopy 01/29/2025 Colorectal Cancer Screening 01/29/2025 Anxiety Screening 12/08/2025 12/08/2024 Diabetes Screening 12/08/2025 12/08/2024, 0 12/08/2024, 11/26/2022, Additional history exists Tobacco Cessation Counseling (#1) 12/08/2025 FIT/gFOBT 01/25/2026 01/25/2025 Lipid Screening 12/09/2027 12/08/2024, 07/09/2018 Fecal DNA 01/26/2028 01/25/2025 Imm-Hepatitis B Discontinued 08/10/2013, 01/2013, 12/31/2012 HIV Screening Completed 01/18/2021, 07/09/2018 Alcohol and Drug Screen Completed 12/09/19, 01/27/2021, 09/15/2020, Additional history exists Depression Annual Screen Completed 12/08/2024, 06/07 Procedures Procedure Name Priority Date/Time Associated Diagnosis Comments LAB COLOGUARD COLON CANCER SCREEN AMB Routine 01/25/2025 9:00 AM EDT Screening for colon cancer URINE CULTURE W ID & SENS Routine 12/08/2024 3:40 PM EDT Essential hypertension T3 FREE Routine 12/08/2024 3:40 PM EDT Essential hypertension RFLX - TSH INTERPRETATION Routine 12/08/2024 3:40 PM EDT Essential hypertension RFLX - REFLEXIVE URINE CULTURE Routine 12/08/2024 3:40 PM EDT Essential hypertension PROSTATE SPECIFIC ANTIGEN, FREE AND TOTAL Routine 12/08/2024 3:40 PM EDT Prostate cancer screening HEMOGLOBIN GLYCOSYLATED A1C Routine 12/08/2024 3:40 PM EDT Essential hypertension URINALYSIS, COMPLETE W/REFLEX TO CULTURE Routine 12/08/2024 3:40 PM EDT Essential hypertension THYROID CASCADING REFLEX PANEL Routine 12/08/2024 3:40 PM EDT Essential hypertension LIPID PANEL Routine 12/08/2024 3:40 PM EDT Essential hypertension COMPREHENSIVE METABOLIC PANEL Routine 12/08/2024 3:40 PM EDT Essential hypertension BLOOD COUNT COMPLETE AUTO&AUTO DIFRNTL WBC Routine 12/08/2024 3:40 PM EDT Essential hypertension HIV 1/2 AG & AB W/RFLX (4TH GEN) Routine 01/18/2021 10:44 AM EDT Opioid use disorder, severe, on maintenance therapy (HCC-CMS) from Last 3 Months or Most Recently Relevant to Health Maintenance Results * (ABNORMAL) Cologuard?? colon cancer screening Stool Stool Routine (01/25/2025 9:00 AM EDT) COLOGUARD RESULT Positive( A) Negative 01/28/2025 4:22 PM EDT [facility] [facility] (CLIA #:[id number]) Comment: The Cologuard (TM) test was performed on this specimen. POSITIVE TEST RESULT. A positive Cologuard result should be followed with a colonoscopy or visual examination of the colon. The normal value (reference range) for this assay is negative. TEST DESCRIPTION: Composite algorithmic analysis of stool DNA-biomarkers with hemoglobin immunoassay. Quantitative values of individual biomarkers are not reportable and are not associated with individual biomarker result reference ranges. Cologuard is intended for colorectal cancer screening of adults of either sex, 45 years or older, who are at average-risk for colorectal cancer (CRC). Cologuard has been approved for use by the U.S. FDA. The performance of Cologuard was established in a cross sectional study of average-risk adults aged 50-84. Cologuard performance in patients ages 45 to 49 years was estimated by sub-group analysis of near-age groups. Colonoscopies performed for a positive result may find as the most clinically significant lesion: colorectal cancer [4.0%], advanced adenoma (including sessile serrated polyps greater than or equal to 1cm diameter) [20%] or non- advanced adenoma [31%]; or no colorectal neoplasia [45%]. These estimates are derived from a prospective cross-sectional screening study of 10,000 individuals at average risk for colorectal cancer who were screened with both Cologuard and colonoscopy. (Elda Lazcano al, N Engl J Med 2014;370(14):0087-2015.) Cologuard may produce a false negative or false positive result (no colorectal cancer or precancerous polyp present at colonoscopy follow up). A negative Cologuard test result does not guarantee the absence of CRC or advanced adenoma (pre-cancer). The current Cologuard screening interval is every 3 years. ([place] [employer] Society and U.S. Multi-Society Task Force). Cologuard performance data in a 10,000 patient pivotal study using colonoscopy as the reference method can be accessed at the following location: www.[employer]s.GoBeMe/results. Additional description of the Cologuard test process, warnings and precautions can be found at [email or web address] [email or web address]. Stool specimen (specimen) 01/25/2025 9:00 AM EDT 01/26/2025 10:57 AM EDT [employer] BUILDING REPAIR MAINTENANCE SUPERVISOR LAB BODY FLUIDS AND STOOL S AMBULATORY Final Result Performing Organization Address City/[facility]/ZIP Co de Phone Number [facility] (CLIA #:[id number]) [address] [place] [address], * RFLX - TSH INTERPRETATION Routine (12/08/2024 3:40 PM EDT) INTERPRETATION SEE NOTE 12/09/2024 7:58 AM EDT [employer] 12/08/2024 3:40 PM EDT 12/08/2024 3:41 PM EDT Narrative [facility] - 12/09/2024 8:28 AM EDT . TSH result is low, FT4 is normal, FT3 normal or low. Consistent with Subclinical Hyperthyroidism, Secondary Hypothyroidism due to pituitary or hypothalamic disease or Nonthyroidal illness (Euthyroid sick Syndrome). Interference from heterophilic antibodies (more common) or autoantibody (less common) should be considered when the TSH value does not fit the clinical picture. TSH with HAMA Treatment (test code 52972) or TSH Antibody (test code 56845) may help identify such interferences. . [facility] LAB - NO BLOOD DRAW Final Result Performing Organization Address City/[facility]/ZIP Co de Phone Number [employer] [address] [address], [place] [address] [address] * T3 FREE Routine (12/08/2024 3:40 PM EDT) T3, FREE 3.4 2.3 - 4.2 pg/mL 12/09/2024 7:58 AM EDT [employer] 12/08/2024 3:40 PM EDT 12/09/2024 4:13 AM EDT Sam Pollard [facility] LAB - BLOOD DRAW Final Re sult Performing Organization Address City/[facility]/ZIP Co de Phone Number [email or web address] [address] [address], [place] [address] [address] * URINE CULTURE W ID & SENS Routine (12/08/2024 3:40 PM EDT) Pathologist [facility] [place] Micro Number [id number] 12/10/2024 2:10 AM EDT [employer] SPECIMEN QUALITY Adequate 12/10/2024 2:10 AM EDT [employer] SOURCE: URINE 12/10/2024 2:10 AM EDT [employer] STATUS: FINAL 12/10/2024 2:10 AM EDT [employer] RESULT Mixed genital jose angel isolated. These superficial bacteria are not indicative of a urinary tract infection. No further organism identification is warranted on this specimen. If clinically indicated, recollect clean-catch, mid-stream urine and transfer immediately to Urine Culture Transport Tube. 12/10/2024 2:10 AM EDT [employer] 12/08/2024 3:40 PM EDT 12/08/2024 3:41 PM EDT Sam Pollard [facility] LAB - MICROBIOLOGY AMBULA TORY Final Result Performing Organization Address City/[facility]/ZIP Co de Phone Number [employer] [address] [address], [place] [address] [address] * (ABNORMAL) URINALYSIS, COMPLETE W/REFLEX TO CULTURE Urine Routine (12/08/2024 3:40 PM EDT) COLOR DARK YELLOW YELLOW 12/09/2024 4:31 AM [facility]Orgenesis [facility] APPEARANCE CLEAR CLEAR 12/09/2024 4:31 AM EDOrgenesis [facility] SPECIFIC GRAVITY 1.021 1.001 - 1.035 12/09/2024 4:31 AM EDOrgenesis [facility] URINE PH 6.5 5.0 - 8.0 12/09/2024 4:31 AM EDOrgenesis [facility] GLUCOSE NEGATIVE NEGATIVE 12/09/2024 4:31 AM EDOrgenesis [facility] BILIRUBIN NEGATIVE NEGATIVE 12/09/2024 4:31 AM EDOrgenesis [facility] KETONES TRACE(A) NEGATIVE 12/09/2024 4:31 AM EDOrgenesis [facility] OCCULT BLOOD NEGATIVE NEGATIVE 12/09/2024 4:31 AM [employer] URINE PROTEIN NEGATIVE NEGATIVE 12/09/2024 4:31 AM [employer] NITRITE NEGATIVE NEGATIVE 12/09/2024 4:31 AM [employer] LEUKOCYTE ESTERASE TRACE(A) NEGATIVE 12/09/2024 4:31 AM [employer] URINE LEUKOCYTES NONE SEEN 0 - 5 /HPF 12/09/2024 4:31 AM [facility] RBC 0-2 0 - 2 /HPF 12/09/2024 4:31 AM [employer] SQUAMOUS EPITHELIAL CELLS NONE SEEN < OR = 5 /HPF 12/09/2024 4:31 AM [facility] BACTERIA NONE SEEN NONE SEEN /HPF 12/09/2024 4:31 AM [facility] HYALINE CAST NONE SEEN NONE SEEN /LPF 12/09/2024 4:31 AM [employer] SEE NOTE SEE NOTE 12/09/2024 4:31 AM [employer] Urine Urine specimen / Unknown 12/08/2024 3:40 PM EDT 12/09/2024 4:11 AM EDT Narrative [email or web address] [facility] - 12/09/2024 4:40 AM EDT This urine was analyzed for the presence of WBC, RBC, bacteria, casts, and other formed elements. Only those elements seen were reported. . . [facility] LAB URINE AMBULATORY Gregoria l Result Performing Organization Address [facility] Co de Phone Number [email or web address] [address] [address], [email or web address] [address] [address] * RFLX - REFLEXIVE URINE CULTURE Routine (12/08/2024 3:40 PM EDT) REFLEXIVE URINE CULTURE SEE NOTE 12/09/2024 4:31 AM EDT [facility] 12/08/2024 3:40 PM EDT 12/09/2024 4:11 AM EDT Narrative [employer] - 12/09/2024 4:40 AM EDT CULTURE INDICATED - RESULTS TO FOLLOW [facility] LAB - MICROBIOLOGY AMBULA TORY Final Result Performing Organization Address [facility] de Phone Number [email or web address] [address] [address], [place] [address] [address] * (ABNORMAL) PROSTATE SPECIFIC ANTIGEN, FREE AND TOTAL Routine (12/08/2024 3:40 PM EDT) TOTAL PSA 1.0 < OR = 4.0 ng/mL 12/09/2024 10:27 AM EDT [facility] FREE PSA 0.2 ng/mL 12/09/2024 10:27 AM EDT [facility] % FREE PSA 20(L) >25 % (calc) 12/09/2024 10:27 AM EDT [email or web address] [facility] Blood Blood / Unknown 12/08/2024 3 :40 PM EDT 12/09/2024 4:27 AM EDT [facility] - 12/09/2024 10:38 AM EDT . PSA(ng/mL) Free PSA(%) Estimated(x) Probability of Cancer(as%) 0-2.5 (*) Approx. 1 2.6-4.0(1) 0-27(2) 24(3) 4.1-10(4) 0-10 56 11-15 28 16-20 20 21-25 16 >or =26 8 >10(+) N/A >50 . References:(1)Tenisha et al.:Urology 60: 469-474 (2002) (2)Tenisha et al.:J.Urol 168: 922-925 (2001) Free PSA(%) Sensitivity(%) Specificity(%) < or = 25 85 19 < or = 30 93 9 (3)Catalona et al.:THEO 277: 8356-5258 (1996) (4)Catalona et al.:THEO 279: 9980-6705 (1997) . (x)These estimates vary with age, ethnicity, family history and STACY results. (*)The diagnostic usefulness of % Free PSA has not been established in patients with total PSA below 2.6 ng/mL (+)In men with PSA above 10 ng/mL, prostate cancer risk is determined by total PSA alone. . The Total PSA value from this assay system is standardized against the equimolar PSA standard. The test result will be approximately 20% higher when compared to the WHO-standardized Total PSA (Siemens assay). Comparison of serial PSA results should be interpreted with this fact in mind. . PSA was performed using the Zan Wendie Immunoassay method. Values obtained from different assay methods cannot be used interchangeably. PSA levels, regardless of value, should not be interpreted as absolute evidence of the presence or absence of disease. . Sam Pollard [facility] LAB - BLOOD DRAW Final Re sult [email or web address] [address] [address], [email or web address] [address] [address] * BLOOD COUNT COMPLETE AUTO&AUTO DIFRNTL WBC Routine (12/08/2024 3:40 PM EDT) WHITE BLOOD CELL COUNT 6.9 3.8 - 10.8 Thousand/ uL 12/09/2024 1:42 AM EDT [facility] RED BLOOD CELL COUNT 5.13 4.20 - 5.80 Million/u L 12/09/2024 1:42 AM EDOrgenesis [facility] HEMOGLOBIN 15.7 13.2 - 17.1 g/dL 12/09/2024 1:42 AM EDOrgenesis [facility] HEMATOCRIT 47.9 38.5 - 50.0 % 12/09/2024 1:42 AM EDOrgenesis [facility] MCV 93.4 80.0 - 100.0 fL 12/09/2024 1:42 AM EDOrgenesis [facility] MCH 30.6 27.0 - 33.0 pg 12/09/2024 1:42 AM EDOrgenesis [facility] MCHC 32.8 32.0 - 36.0 g/dL 12/09/2024 1:42 AM [employer] RDW 12.8 11.0 - 15.0 % 12/09/2024 1:42 AM [facility] PLATELET COUNT 235 140 - 400 Thousand/ uL 12/09/2024 1:42 AM [employer] MPV 10.1 7.5 - 12.5 fL 12/09/2024 1:42 AM EDOrgenesis [facility] ABSOLUTE NEUTROPHILS 3,830 1,500 - 7,800 cells/uL 12/09/2024 1:42 AM [facility] ABSOLUTE LYMPHOCYTES 2,539 850 - 3,900 cells/uL 12/09/2024 1:42 AM [facility] ABSOLUTE MONOCYTES 442 200 - 950 cells/uL 12/09/2024 1:42 AM [employer] ABSOLUTE EOSINOPHILS 83 15 - 500 cells/uL 12/09/2024 1:42 AM EDOrgenesis [facility] ABSOLUTE BASOPHILS 7 0 - 200 cells/uL 12/09/2024 1:42 AM EDOrgenesis [facility] NEUTROPHILS PCT 55.5 % 1:42 AM EDOrgenesis [facility] LYMPHOCYTES 36.8 % 12/09/2024 1:42 AM [facility] MONOCYTES 6.4 % 12/09/2024 1:42 AM [facility]Orgenesis [facility] EOSINOPHILS 1.2 % 12/09/2024 1:42 AM EDOrgenesis [facility] BASOPHILS 0.1 % 12/09/2024 1:42 AM EDT [employer] Blood Blood / Unknown 12/08/2024 3 :40 PM EDT 12/09/2024 1:34 AM EDT Narrative [facility] - 12/09/2024 1:44 AM EDT For adults, a slight decrease in the calculated MCHC value (in the range of 30 to 32 g/dL) is most likely not clinically significant; however, it should be interpreted with caution in correlation with other red cell parameters and the patient's clinical condition. [facility] Atul FNP LAB - BLOOD DRAW Final Re sult Performing Organization Address [facility] de Phone Number [employer] [address] [address], [place] [address] [place] [phone] * (ABNORMAL) HEMOGLOBIN GLYCOSYLATED A1C Routine (12/08/2024 3:40 PM EDT) HEMOGLOBIN A1C 5.7(H) <5.7 % 12/09/2024 4:56 AM EDT [employer] Blood Blood / Unknown 12/08/2024 3 :40 PM EDT 12/09/2024 1:34 AM EDT Narrative [employer] [employer] - 12/09/2024 4:56 AM EDT For someone without known diabetes, a hemoglobin A1c value between 5.7% and 6.4% is consistent with prediabetes and should be confirmed with a follow-up test. . For someone with known diabetes, a value <7% indicates that their diabetes is well controlled. A1c targets should be individualized based on duration of diabetes, age, comorbid conditions, and other considerations. . This assay result is consistent with an increased risk of diabetes. . Currently, no consensus exists regarding use of hemoglobin A1c for diagnosis of diabetes for children. . Sam Atul FNP LAB - BLOOD DRAW Final Re sult Performing Organization Address [facility] Co de Phone Number [employer] [address] [place] [address], [address] [address] * (ABNORMAL) LIPID PANEL Routine (12/08/2024 3:40 PM EDT) CHOLESTEROL, TOTAL 189 <200 mg/dL 12/09/2024 7:53 AM EDT [email or web address] [facility] HDL CHOLESTEROL 49 > OR = 40 mg/dL 12/09/2024 7:53 AM EDT [email or web address] [facility] TRIGLYCERIDES 196(H) <150 mg/dL 12/09/2024 7:53 AM EDT [email or web address] [facility] LDL-CHOLESTEROL 108(H) mg/dL (calc) 12/09/2024 7:53 AM EDT [email or web address] [facility] CHOL/HDLC RATIO 3.9 <5.0 (calc) 12/09/2024 7:53 AM EDT [email or web address] [facility] NON-HDL CHOLESTEROL 140(H) <130 mg/dL (calc) 12/09/2024 7:53 AM EDT [email or web address] [facility] Blood Blood / Unknown 12/08/2024 3 :40 PM EDT 12/09/2024 4:13 AM EDT Narrative [email or web address] [facility] - 12/09/2024 7:54 AM EDT Reference range: <100 . Desirable range <100 mg/dL for primary prevention; <70 mg/dL for patients with CHD or diabetic patients with > or = 2 CHD risk factors. . LDL-C is now calculated using the Darvin-Christopher calculation, which is a validated novel method providing better accuracy than the Friedewald equation in the estimation of LDL-C. Darvin SS et al. THEO. 2013;310(19): 5147-3032 (http://education.[employer].GoBeMe/faq/QGC922) For patients with diabetes plus 1 major ASCVD risk factor, treating to a non-HDL-C goal of <100 mg/dL (LDL-C of <70 mg/dL) is considered a therapeutic option. us Sam Pollard [facility] LAB - BLOOD DRAW Final Re sult [facility] [address] [address], [email or web address] [address] [address] * (ABNORMAL) COMPREHENSIVE METABOLIC PANEL Routine (12/08/2024 3:40 PM EDT) [facility] GLUCOSE 107(H) 65 - 99 mg/dL 12/09/2024 7:53 AM [employer] UREA NITROGEN (BUN) 14 7 - 25 mg/dL 12/09/2024 7:53 AM [facility] CREATININE (blood) 0.98 0.70 - 1.35 mg/dL 12/09/2024 7:53 AM [facility] EGFR 88 > OR = 60 mL/min/1. 73m2 12/09/2024 7:53 AM [facility] BUN/CREATININE RATIO SEE NOTE: 6 - 22 (calc) 12/09/2024 7:53 AM [facility] SODIUM 139 135 - 146 mmol/L 12/09/2024 7:53 AM [facility] POTASSIUM 4.5 3.5 - 5.3 mmol/L 12/09/2024 7:53 AM [facility] CHLORIDE 103 98 - 110 mmol/L 12/09/2024 7:53 AM [facility] CARBON DIOXIDE 28 20 - 32 mmol/L 12/09/2024 7:53 AM [facility] CALCIUM 9.1 8.6 - 10.3 mg/dL 12/09/2024 7:53 AM [facility] PROTEIN, TOTAL 6.4 6.1 - 8.1 g/dL 12/09/2024 7:53 AM [facility] ALBUMIN 4.1 3.6 - 5.1 g/dL 12/09/2024 7:53 AM [facility] GLOBULIN 2.3 1.9 - 3.7 g/dL (calc) 12/09/2024 7:53 AM [facility] ALBUMIN/GLOBULI N RATIO 1.8 1.0 - 2.5 (calc) 12/09/2024 7:53 AM [facility] BILIRUBIN, TOTAL 0.6 0.2 - 1.2 mg/dL 12/09/2024 7:53 AM [facility] ALKALINE PHOSPHATASE 58 35 - 144 U/L 12/09/2024 7:53 AM [facility] AST 17 10 - 35 U/L 12/09/2024 7:53 AM EDT [email or web address] [facility] [facility] ALT 11 9 - 46 U/L 12/09/2024 7:53 AM EDT [email or web address] Blood Blood / Unknown 12/08/2024 3 :40 PM EDT 12/09/2024 4:13 AM EDT Narrative [email or web address] - 12/09/2024 7:54 AM EDT . Fasting reference interval . For someone without known diabetes, a glucose value between 100 and 125 mg/dL is consistent with prediabetes and should be confirmed with a follow-up test. . Not Reported: BUN and Creatinine are within reference range. . Sam Pollard BUILDING REPAIR MAINTENANCE SUPERVISOR LAB - BLOOD DRAW Final Re sult [email or web address] [address] [address], [email or web address] [address] [address] * HIV 1/2 AG & AB W/RFLX (4TH GEN) (01/18/2021 10:44 AM EDT) HIV AG/AB, 4TH GEN NON-REAC TIVE NON-REAC TIVE [email or web address] Comment: HIV-1 antigen and HIV-1/HIV-2 antibodies were not detected. There is no laboratory evidence of HIV infection. PLEASE NOTE: This information has been disclosed to you from records whose confidentiality may be protected by state law. If your state requires such protection, then the state law prohibits you from making any further disclosure of the information without the specific written consent of the person to whom it pertains, or as otherwise permitted by law. A general authorization for the release of medical or other information is NOT sufficient for this purpose. For additional information please refer to http://education.Akampus.GoBeMe/faq/WIH077 (This link is being provided for informational/ educational purposes only.) The performance of this assay has not been clinically validated in patients less than 2 years old. Blood Blood / Unknown 01/18/2021 1 0:44 AM EDT 01/18/2021 10:45 AM EDT Sierra Mcginnis APRN LAB - BLOOD DRAW Final Result [facility] [address] [facility] [address] [place] [address], [facility] [address] [address] from Last 3 Months or Most Recently Relevant to Health Maintenance Insurance [facility] Care Teams Electronic Scale Subassembler Relationship Specialty Start Date End Date Sam Pollard FNP [address] [place] [address] PCP - General Family Medicine, PIE MAKER MACHINE 03/11/20
--- OUTSIDE RECORDS SUMMARY | 2025-02-07 17:48 | XMS_ITS | Encounter Summary ---
Author Organization [facility] Address [address] [place] [address] Care Team Providers Care Associate Professor Of Biblical Studies Name Role Phone Sam Pollard Primary Care Provider [phone] [phone] Reason for Referral * Diagnostic Procedures (Urgent) - Pending Review Specialty Diagnoses / Procedures Referred By Aris cerna Referred To Contact Diagnoses Positive colorectal cancer screening using Cologuard test Procedures REFERRAL FOR COLONOSCOPY Sam Pollard FNP [address] [place] [address] Phone: tel: fax: Gastroenterology, [address] [address] Phone: tel: fax: Referral ID Status Reason Start Date Expiration Date Visits Requested Visits Authorized [id number] Pending Review Specialty Services Required 02/04/2025 02/04/2026 1 1 Reason for Visit * Reason Onset Date Comments Abnormal Lab 02/04/2025 Encounter Details Date Type Department Care Team ([facility] st Contact Info) Description 02/04/2025 Results Follow-Up [facility] [address] [place] [id number] Sam Pollard FNP [address] [place] [address] Social History Tobacco Use Types Packs/Day Years Used Date Smoking Tobacco: Some Days Cigarettes Smokeless Tobacco: Never Alcohol Use Standard Drinks/Week Comments No 0 [...] Orientation Straight 07/11/2018 10 :04 AM PST documented as of this encounter Nursing Notes * Liana Alex RN - 02/04/2025 12:05 PM EDT Pt informed. * Liana Alex RN - 02/04/2025 12:04 PM EDT ----- Message from Sam Pollard sent at 02/04/2025 12:48 AM EDT ----- Patient with positive cologuard test, will need to do colonoscopy to further evaluate ----- Message ----- From: Incoming Ancillary Results And Orders - Lab Results From [facility] Sent: 12/09/2024 1:45 AM EDT To: EFRAÍN Braun documented in this encounter Plan of Treatment Scheduled Orders Name Type Priority Associated Diagnoses Orde r Schedule REFERRAL FOR COLONOSCOPY Procedures Routine Positive colorectal cancer screening using Cologuard test Ordered: 02/04/2025 documented as of this encounter Visit Diagnoses Diagnosis Positive colorectal cancer screening using Cologuard test- Primary documented in this encounter Additional Health Concerns Assessment Noted Time PHQ-9 Depression Total Score: 0 12/09/19 25 2:57 PM PDT documented as of this encounter Care Teams Associate Professor Of Biblical Studies Relationship Specialty Start Date End Date Sam Pollard FNP [facility] [place] [address] PCP - General Family Medicine, MARINE RIGGER 03/11/20 documented as of this encounter
--- OUTSIDE RECORDS SUMMARY | 2025-02-07 17:48 | XMS_ITS | Encounter Summary ---
Author Organization [facility] Address [address] [facility] [address] [place] [phone] Phone Care Team Providers Care Systems Software Specialist Name Role Phone Pcp, Unknown Primary Care Provider Unavailabl e Encounter Details Date Type Department Care Team (Late st Contact Info) Description 2022 Procedure [facility], Ct Scan - [address] [address] Social History Tobacco Use Types Packs/Day Years Used Date Smoking Tobacco: Never Assessed Sex and Gender Information Value Date Recorded Sex Assigned at Not on file Legal Sex Male 11:53 AM EST Gender Identity Not on file Sexual Orientation Not on file documented as of this encounter Functional Status * Calculated C-SSRS Risk Score (Lifetime/Recent) Answer Date of Assessment Author No Risk Indicated 2022 1:08 PM Wendi Reddy, VLADIMIR * [place] Suicide Severity Rating Scale (Screener/Recent Self-Report) Question Answer Date of Assessment Author 1. Wish to be (Past 1 Month) No 023 1:08 PM Wendi Reddy, RN 2. Non-Specific Active Suici jairo Thoughts (Past 1 Month) No 2022 1:08 PM Wendi Reddy , RN 6. Suicidal Behavior (Lifetime) No 3 1:08 PM Wendi Reddy, RN documented as of this encounter Plan of Treatment Not on file documented as of this encounter Visit Diagnoses Not on filedocumented in this encounter Care Teams Systems Software Specialist Relationship Specialty Start Date End Date Pcp, Unknown PCP - General 06/01/22 documented as of this encounter Additional Source Comments The information contained in this document represents components of the legal health record. It is not the complete legal health record.[facility]
--- OUTSIDE RECORDS SUMMARY | 2025-02-07 17:48 | XMS_ITS | Clinical Summary ---
Author Organization [facility] Address [address] [facility] 7t [place] [address] Care Team Providers Care Counseling Aide Name Role Phone Unavailable Primary Care Provider Unavailabl e Encounters Date Type Department Care Team Description 11/24/2024 Population Health Risk Score [facility] ([facility]) Department [address] [facility] [address] [place] [id number] Provider, Population Health Generic from Last 3 Months Social History Tobacco Use Types Packs/Day Years Used Date Smoking Tobacco: Never Assessed Sex and Gender Information Value Date Recorded Sex Assigned at Not on file Legal Sex Male 9:28 PM EDT Gender Identity Not on file Sexual Orientation Not on file Plan of Treatment Health Maintenance Due Date Last Done Comments CT Colonography 1964 Colonoscopy 1964 Depression Screening 1964 FIT 1964 Lipid Panel 1964 SDOH Screening 1964 Sigmoidoscopy 1964 Disability Screening 1964 Alcohol/Substance Use Screening 1976 Tobacco Screening 1976 DTaP/Tdap/Td Vaccines (1 - Tdap) 1983 Hepatitis A Vaccines (1 of 2 - Risk 2-dose series) 1983 Pneumococcal Vaccine: 50+ Years (1 of 1 - PCV) 2014 Zoster Vaccines (1 of 2) 2014 Hepatitis B Vaccines (1 of 3 - Risk 3-dose series) 2024 RSV Patients and Patients Aged 60 years or older (1 - Risk 60-74 years 1-dose series) 2024 COVID-19 Vaccine (1 - 2023-2 5 season) 2025 Influenza Vaccine (#1) 2025 FOBT 01/25/2026 01/25/2025 Colorectal Cancer Screening 01/26/2028 FIT DNA/Cologuard 01/26/2028 01/25/2025 HIV Screening Completed 01/18/2021, 01/18/2021 HIB Vaccines Aged Out No longer eligi ble based on patient's age to complete this topic HPV Vaccines Aged Out No longer eligi ble based on patient's age to complete this topic IPV Vaccines Aged Out No longer eligi ble based on patient's age to complete this topic Meningococcal B Vaccine Aged Out No l onger eligible based on patient's age to complete this topic Meningococcal Vaccine Aged Out No [place] eligible based on patient's age to complete this topic RSV under 20 months Aged Out No longe r eligible based on patient's age to complete this topic Rotavirus Vaccines Aged Out No longer eligible based on patient's age to complete this topic
--- OUTSIDE RECORDS SUMMARY | 2025-02-07 17:48 | XMS_ITS | Clinical Summary ---
Author Organization [address] [place] [address] [place] [phone] Phone Care Team Providers Care Sterile Supply Technician Name Role Phone Sam Pollard NP Primary Care Provider [phone] Allergies No known active allergies Medications losartan (COZAAR) 25 mg tablet Take 1 tablet (25 mg total) by mouth 1 (one) time each day. Active naproxen (EC NAPROSYN) 500 mg EC tablet Take 1 tablet (500 mg total) by mouth 1 (one) time each day with breakfast. Do not crush, chew, or split. Active varenicline tartrate (CHANTIX) 1 mg tablet Take 1 tablet (1 mg total) by mouth 2 (two) times daily after breakfast and dinner. Take with full glass of water. Active Encounters Date Type Department Care Team Description 02/04/2025 Telephone Gastroenterology - [address] [address] Racheal Alatorre MD from Last 3 Months Social History Tobacco Use Types Packs/Day Years Used Date Smoking Tobacco: Never Assessed Sex and Gender Information Value Date Recorded Sex Assigned at Not on file Legal Sex Male 5:41 AM EST Gender Identity Not on file Sexual Orientation Not on file Plan of Treatment Health Maintenance Due Date Last Done Comments Colorectal Cancer Screening: Colonoscopy 1964 DTaP,Tdap,and Td Vaccines (1 - Tdap) 1983 Pneumococcal Vaccine: 50+ Ye ars (1 of 1 - PCV) 2014 Zoster Vaccines (1 of 2) 2014 Cholesterol Screening (Lipid Panel) 04/08/2022 HIV Screening 04/08/2022 Hepatitis C Screening 04/08/2022 Social Influencers of Health Screening 04/08/2022 Depression Screening 05/06/2024 COVID-19 Vaccine ( - 2023-2 5 season) 2025 Influenza Vaccine (#1) 2025 RSV Immunization Adult Patie nts (1 - 1-dose 75+ series) 2039 HIB Vaccines Aged Out No longer eligi ble based on patient's age to complete this topic HPV Vaccines Aged Out No longer eligi ble based on patient's age to complete this topic Hepatitis A Vaccines Aged Out No long er eligible based on patient's age to complete this topic Hepatitis B Vaccines Aged Out No long er eligible based on patient's age to complete this topic IPV Vaccines Aged Out No longer eligi ble based on patient's age to complete this topic MMR Vaccines Aged Out No longer eligi ble based on patient's age to complete this topic Meningococcal ACWY Vaccine Aged Out N o longer eligible based on patient's age to complete this topic Meningococcal B Vaccine Aged Out No l onger eligible based on patient's age to complete this topic RSV Immunization Patients Un poncho 20 months Aged Out No longer eligible b ased on patient's age to complete this topic Varicella Vaccines Aged Out No longer eligible based on patient's age to complete this topic Insurance MEDICAID - [place] Care Teams Sterile Supply Technician Relationship Specialty Start Date End Date Sam Pollard NP [address] [place] [address] PCP - General Nurse Practitioner 02/04/25
--- NOTE | 2025-02-07 17:51 | PC.NURSE ---
Story from family: Pt lives in [place] and called family to pick him up. On the drive pt became unresponsive so family drove him to [facility].
--- NOTE | 2025-02-07 17:52 | PC.NURSE ---
Propofol drip increased due to high HR, high BP, appearing uncomfortable.
--- NOTE | 2025-02-07 18:02 | PC.NURSE ---
New JOSE MIGUEL line after placement adjustment 27.5, OGT placed by Dr Anders s/p intubation, awaiting placement confirmation via imaging, + via auscultation
[2025-02-07 18:07] LABS: Appearance Urine Clear; Glucose Urine UA Negative (Negative); PH 6.0 (5.0-9.0); Specific Gravity - Urine 1.020 (1.005-1.025)
[2025-02-07 18:18] LABS: Cannabinoid Screen Urine POSITIVE (Not Detect)
[2025-02-07 18:21] LABS: ABG HCO3 20 mmol/L (22-26); ABG O2 % Saturation 100.0 %
[2025-02-07] MEDS: fentaNYL citrate/NS 1,000 MCG/100 ML PLAST..BAG 7.5 MCG IVCONT (18:22)
--- NOTE | 2025-02-07 18:23 | PC.NURSE ---
Per MD start fentanyl drip at 75 mcg/hr
[2025-02-07] MEDS: levETIRAcetam 3,000 MG in 0.9 % Sodium Chloride 100 ML 520 MG IV (19:05)
--- NOTE | 2025-02-07 19:27 | PC.NURSE ---
ICU nurse at [facility], preparing pt for transport to ICU, pt calm under sedation for ventilation.
--- NOTE | 2025-02-07 19:28 | PM.CCHP ---
History of Present Illness Date of Service: 02/07/25 Attending physician on admission: Brannon Rhodes Chief Complaint: Acute respiratory failure/drug overdose 59-year-old male with underlying history of hypertension, had presented to the emergency room by private vehicle.? Stories obtained from the ED physician who intubated the patient for airway protection.? Reportedly the patient did some shopping with his brother who dropped him off at some friend's, subsequently the patient had called his brother back to pick him up at the same place.? On his way home the patient was noted to become more and more somnolent and obtunded and by the time they got home the patient was no longer responsive.? Instead of calling 911 were of his family members drove him to the ER where he was found to be unresponsive, they had reported some cyanosis, the patient received 4 mg of intranasal Narcan with good effect.? Once the patient got into the emergency room the patient was noted to have some bizarre movements with staring and gazing, it was not clear whether or not he was having seizures, diazepam was administer with minor improvement, the patient was noted to be very hypertensive and tachycardic.? He was intubated for airway protection and despite of several doses of propofol the patient continued to be somewhat restless and fighting the vent until fentanyl was added.? He was also given 3 g of Keppra IV. The workup reveal a white count 14 0.4, H and H of 16.748.5 platelets of 331.? ABG showed pH of 7.39, pCO2 33, PO2 193, bicarb 20.? Sodium 143, potassium 3.6, chloride 108, carbon dioxide 16, anion gap 23, BUN 16, creatinine 1.33, glucose 186, calcium 9.1, magnesium 2.0.? Liver function normal.? Urinalysis negative, urine toxic screen positive for opioids, fentanyl and THC.? The patient underwent a head CT which revealed no intracranial pathology.? Post intubation x-ray reveals the tip of the tube by 3.5 cm from the gilberto and mild left middle lobe atelectasis.? Subsequently patient was admitted to the ICU for further care. ? Review of Systems Review of Systems: Yes unobtainable due to endotracheal tube PMFSH Past Medical History Medical History Hypertension Social History Social History Household Members: Unknown / Unable to assess Housing: Unknown / Unable to assess Patient Tobacco Use Status: Tobacco use Unknown Advance Directives: No Advance Directives Information Provided: No Do you have a plan to hurt others: No Plan Nutrition Risks: On aspiration precautions Meds Allergies Allergy/AdvReac Type Severity Reaction Status Date / Time No Known Allergies Allergy Verified 02/07/25 17:09 Active Medications: Current Medications Dextrose (Dextrose 50 % 25 Gm/50 Ml Syringe) 25 gm IVPUSH Q15M PRN; Protocol PRN Reason: per Hypoglycemia Standing Ord. Glucose (Glucose Gel 15 Gm Gel..Gram.) 15 gm PO Q15M PRN; Protocol PRN Reason: per Hypoglycemia Standing Ord. Propofol (Diprivan) 1,000 mg in 100 mls @ 0 mls/hr IVCONT .Q0M REGGIE; Protocol Last Titration: 02/07/25 18:06 Dose: 50 mcg/kg/min, 24.49 mls/hr Fentanyl (Sublimaze/Ns) 1,000 mcg in 100 mls @ 0 mls/hr IVCONT .Q0M REGGIE; Protocol Last Titration: 02/07/25 18:28 Dose: 100 mcg/hr, 10 mls/hr Insulin Human Lispro (Insulin Lispro 100 Unit/Ml 3 Ml Vial) 0 unit SUBCUT Q6H REGGIE; Protocol Naloxone HCl (Naloxone Hcl 0.4 Mg/Ml Vial) 0.2 mg IVPUSH Q2M PRN PRN Reason: Excessive sedation or RR < 8 Physical Exam Vital Signs: Vital Signs: Last Vital Signs Temp 97.3 F 02/07/25 19:14 Pulse 84 02/07/25 19:14 Resp 18 02/07/25 19:14 BP 121/73 02/07/25 19:14 Pulse Ox 100 02/07/25 19:14 O2 Del Method Mechanical Ventil ation 02/07/25 19:14 O2 Flow Rate 25 02/07/25 17:24 FiO2 40 02/07/25 19:14 BMI result Body Mass Index 26.7 Sepsis exam done 1944 General:? Sedated, intubated Skin:? Thin, Intact, no lesions, edema, erythema, clubbing or cyanosis.? No ulcers. HEENT:? Head is normocephalic, atraumatic, pupils pinpoint and equal, minimally reactive. ?Buccal mucosa is dry.? Cardiac:? Clear S1-S2, no murmurs rubs or gallops. Pulmonary:? Diminished lung sounds bilaterally, no wheezing.? No crackles, rales or rhonchi. Abdomen:? Protuberant, positive bowel sounds in all 4 quadrants.? Soft, nontender, no rebound or guarding.? Musculoskeletal:? Passive range of motion of the upper and lower extremities at the major joints reveal no cogwheeling, no crepitus, no leg edema, no asymmetry. Neurologic:? As above.? No focal deficits noted. Vascular:? 2+ pulses upper and lower extremities distally.? Less than 2nd capillary refill of fingers and toes bilaterally upper and lower extremities Results Labs 02/07/25 17:17 02/07/25 17:17 Labs: Laboratory Results - last 24 hr 02/07/25 02/07/25 02/07/25 17:03 17:17 18:01 MCV 89.3 MCH 30.8 MCHC 34.4 RDW 13.3 Plt Count 331 MPV 9.8 Immature Gran % (Auto) Cancelled Neut % (Auto) Cancelled Lymph % (Auto) Cancelled [place] % (Auto) Cancelled Eos % (Auto) Cancelled Baso % (Auto) Cancelled Lymph # (Auto) Cancelled [place] # (Auto) Cancelled Eos # (Auto) Cancelled Baso # (Auto) Cancelled Abs Immat Gran (auto) Cancelled Absolute Neuts (auto) Cancelled Absolute Nucleated RBC 0.000 Nucleated RBC % (auto) 0.0 Neutrophils % (Manual) 69 Lymphocytes % (Manual) 24 Atypical Lymphs % (Man) 1 Monocytes % (Manual) 5 Eosinophils % (Manual) 1 Abs Neuts (Manual) 9.9 H Lymphocytes # (Manual) 3.5 Atyp Lymphs # (Manual) 0.1 Monocytes # (Manual) 0.7 Eosinophils # (Manual) 0.1 Smudge Cells PRESENT Platelet Estimate NORMAL Plt Morphology Comment NORMAL RBC Morphology NOTED PT 11.6 INR 1.0 O2 Saturation ABG pH at Pt Temp ABG pCO2 at Pt Temp ABG pO2 at Pt Temp ABG HCO3 ABG Base Excess (Actual) Anion Gap 23 H Estim Creat Clear Calc 53.2 Estimated GFR 55 POC Glucose 186 H Random Glucose 197 H Calcium 9.1 Magnesium 2.0 Total Bilirubin 0.5 Direct Bilirubin 0.2 AST 24 ALT 16 Alkaline Phosphatase 79 Troponin I High Sens < 2.7 Total Protein 7.2 Albumin 4.7 Urine Color Yellow Urine Appearance Clear Urine pH 6.0 Ur Specific [place] 1.020 Urine Protein Trace Urine Glucose (UA) Negative Urine Ketones Negative Urine Blood Negative Urine Nitrite Negative Ur Leukocyte Esterase Negative Urine Opiates Screen POSITIVE H Ur Buprenorphine Scrn Not Detected Ur Oxycodone Screen Not Detected Urine Methadone Screen Not Detected Urine Fentanyl Screen POSITIVE H Ur Barbiturates Screen Not Detected Ur Phencyclidine Scrn Not Detected Ur Amphetamines Screen Not Detected U Benzodiazepines Scrn Not Detected Urine Cocaine Screen Not Detected U Marijuana (THC) Screen POSITIVE H Ethyl Alcohol < 10 02/07/25 18:15 MCV MCH MCHC RDW Plt Count MPV Immature Gran % (Auto) Neut % (Auto) Lymph % (Auto) [place] % (Auto) Eos % (Auto) Baso % (Auto) Lymph # (Auto) [place] # (Auto) Eos # (Auto) Baso # (Auto) Abs Immat Gran (auto) Absolute Neuts (auto) Absolute Nucleated RBC Nucleated RBC % (auto) Neutrophils % (Manual) Lymphocytes % (Manual) Atypical Lymphs % (Man) Monocytes % (Manual) Eosinophils % (Manual) Abs Neuts (Manual) Lymphocytes # (Manual) Atyp Lymphs # (Manual) Monocytes # (Manual) Eosinophils # (Manual) Smudge Cells Platelet Estimate Plt Morphology Comment RBC Morphology PT INR O2 Saturation 100.0 ABG pH at Pt Temp 7.39 ABG pCO2 at Pt Temp 33 ABG pO2 at Pt Temp 193 H ABG HCO3 20 L ABG Base Excess (Actual) -3.2 Anion Gap Estim Creat Clear Calc Estimated GFR POC Glucose Random Glucose Calcium Magnesium Total Bilirubin Direct Bilirubin AST ALT Alkaline Phosphatase Troponin I High Sens Total Protein Albumin Urine Color Urine Appearance Urine pH Ur Specific [place] Urine Protein Urine Glucose (UA) Urine Ketones Urine Blood Urine Nitrite Ur Leukocyte Esterase Urine Opiates Screen Ur Buprenorphine Scrn Ur Oxycodone Screen Urine Methadone Screen Urine Fentanyl Screen Ur Barbiturates Screen Ur Phencyclidine Scrn Ur Amphetamines Screen U Benzodiazepines Scrn Urine Cocaine Screen U Marijuana (THC) Screen Ethyl Alcohol Assessment and Plan (1) Acute hypoxemic respiratory failure: Status: Acute Plan 1. Acute hypoxemic respiratory failure 2. Acute multi-drug overdose 3. Polysubstance abuse 4. Hyperglycemia rule out diabetes mellitus type 2 5. Reactive versus infectious likely early sepsis 6. Left lower lobe atelectasis versus early pneumonia 7. Transient hypertensive encephalopathy/ urgency (controlled) 8. Questionable seizure activity PLAN OF CARE: Admit to the ICU, monitor vital signs, I's and o's, ventilatory support, propofol for sedation, if needed Levophed to maintain hemodynamics.? Insulin sliding scale and hemoglobin A1c.? Stat blood cultures, lactic acid, IV fluids.? I will start him on Zosyn given the possibility of left lower lobe pneumonia.?The patient may have acute early sepsis but certainly no septic shock signs so far. Sputum culture Gram stain.? Repeat labs in the morning.? Empiric Keppra, EEG to rule out seizure activity. Follow up Sepsis exam done 2144 General:? Sedated, intubated Skin:? No changes Cardiac:? Clear S1-S2, no murmurs rubs or gallops. Pulmonary:? Diminished lung sounds bilaterally, no wheezing.? No crackles, rales or rhonchi. Vascular:? 2+ pulses upper and lower extremities distally.? Less than 2nd capillary refill of fingers and toes bilaterally upper and lower extremities Lactic acid did come back elevated, 2.5 L of fluids and albumin ordered, the patient did have blood cultures, antibiotics ordered. We will obtain sputum culture Gram stain. Continue with the above-mentioned treatment and given ongoing hypotension the patient was started on Levophed. GI PROPHYLAXIS:? IV ppi DVT PROPHYLAXIS:? Lovenox subQ This patient counter and care had a high probability of a clinically significant, sudden, or life threatening deterioration of this patient's condition which required my full and direct attention, intervention and personal management. Critical care time used for critical evaluation of this patient, diagnosis, treatment and coordination of care, review her records and documentation TOTAL CRITICAL CARE TIME??90 MIN . discussion and coordination with consultants, completely separate from any procedures performed.Patient's care was discussed in detail with Dr. Rhodes who is aware of all the above as well as the plan of care for this patient. Total time managing care of this patient today: 90 minutes.
--- NOTE | 2025-02-07 19:29 | PC.NURSE ---
pt brother Jose called for an update, sister Radha at bedside confirms that she would speak with him on her cell phone. Jose called Radha.
[2025-02-07] MEDS: Lactated Ringers 1,000 ML 999 ML IV ×2 (20:13→21:11)
[2025-02-07] MEDS: Chlorhexidine Gluc Oral Rinse 15 ML MOUTHWASH BUCCAL (20:17)
[2025-02-07 20:30] LABS: Glucose, Whole Blood 136 mg/dL (60-115)
[2025-02-07 22:07] LABS: Reflex Lactate? Lactic Acid Added
[2025-02-07] MEDS: Lactated Ringers 500 ML 999 ML IV (22:11)
[2025-02-07 22:29] LABS: ABG Refer to POC result
[2025-02-07 22:49] LABS: ~Lactic Acid-LAB USE ONLY 2.7 mmol/L (0.5-2.0)
[2025-02-08] VITALS (50 sets, daily range): BP systolic 83–148; BP diastolic 49–81; PULSE 46–59; RESP 12–18; TEMP 34.2–37.1; O2SAT 94–99; BMI 29.0
--- NOTE | 2025-02-08 | ECG_ITS ---
Test Reason : qtc check Blood Pressure : */* mmHG Vent. Rate : 49 BPM Atrial Rate : 49 BPM P-R Int : 140 ms QRS Dur : 88 ms QT Int : 480 ms P-R-T Axes : 2 36 29 degrees QTcB Int : 433 ms Sinus bradycardia Otherwise normal ECG When compared with ECG of 07-Feb-2025 18:39, Vent. rate has decreased by 47 bpm QT has shortened Referred By: Monica Mcmanus Electronically Signed By: LB FITZPATRICK MD
[2025-02-08 00:01] LABS: Glucose, Whole Blood 133 mg/dL (60-115)
[2025-02-08 00:30] LABS: Reflex Lactate? 2 Y
[2025-02-08 01:00] LABS: ~Lactic Acid-LAB USE ONLY 1.8 mmol/L (0.5-2.0)
--- NOTE | 2025-02-08 01:57 | PC.NURSE ---
Addendum entered by Gem Juan RN 02/08/25 06:13: Morning labs back showing albumin low 3.2, phosphorous low 2.5. PA notified, orders for repletions with albumin and kphos, initiated. Addendum entered by Gem Juan RN 02/08/25 05:23: pH critical at 7.61 on scheduled VBG this morning. RT and PA aware. Rate on vent reduced from 16 to 12 by RT. Original Note: ~18:35: This display card writer received handoff report from the ED RN at this patent's bedside in ED room 14 while awaiting formal ICU admit orders. On initial assessment, this patient was noted to be intubated/mechanically vented with the following settings: ACVC 16/380/5/40% Fio2 as managed by RT. Patient appeared to be tolerating the vent well with sedation. Fentanyl was noted to be infusing at 100 mcg/hr and propofol was infusing at 50 mcg/kg/hr. Pupils 2mm equal/round/briskly reactive. Pt was NSR-ST 90's to low 100's on tele. +distal pulses, warm extremities x4. Afebrile on core temp via temp-sensing IUC in place, intact and patent of clear, pale-yellow urine. VSS (see flowsheet). 1x 3000mg IV keppra was administered per covering ED Dr. Villa. OG tube in place and observed clamped. An EKG was obtained by heating repair technician per Dr. Villa orders. Patient's sister and primary contact Radha was at this patient's bedside. Plan of care including transfer of patient to the ICU was discussed with Radha with teach back verbalized. Patient belongings were taken home by Radha. ~19:40: This patient was transferred to the ICU by this display card writer, healthcare technician, and RT to assist with vent. Patient admitted to ICU rm [id number]. New orders reviewed after patient was transferred to in-room bed and settled; lactic acid, blood cultures x2 were obtained by patient financial services specialist prior to display card writer's initiation of zosyn and 1L LR bolus in this order, as per covering provider Rad Luna PA-C verbal orders. Vent Fio2 settings were decreased to 28% by RT. Spo2 maintained per co2 retainer oxygen protocol order.? 20:29: Critical lactic acid of 2.8 was reported from lab. PA notified,?Additional 1.5L LR boluses ordered.? ~21:30: Patient MAP noted newly less than 65. PA notified, new 20g U/S guided IV placed to right forearm and levophed was initiated per PA order/MAR with +effect.?? 22:49: 2 hr F/U lactic back at 2.7. Of note, final 500ml LR bolus has been infusing during this time, paused briefly for lactic draw as per PA. PA was notified of this result, no new orders. 4-hour F/U lactic back improved at 1.8. Foams placed to bilateral heels and buttocks for protection as well as low air loss pump placed, all applied shortly after arrival to the unit. Q2hr turning and repositioning for skin integrity continues.?? Bed alarm on and safety measures in place. Hourly Purposeful rounding enacted.? Please see shift assessments, tasks in worklist, and titrations in MAR for full details. Plan of care enacted and ongoing.?
[2025-02-08 04:59] LABS: VBG HCO3 24 mmol/L (22-26); VBG O2 % Saturation 99.0 %
[2025-02-08 05:08] LABS: MANUAL DIFF FLAG NO
[2025-02-08 05:09] LABS: Venous Blood Gas Refer to POC result
[2025-02-08 05:10] LABS: Hematocrit 38.5 % (42.0-52.0); Hemoglobin 13.2 g/dl (14.0-18.0); Imm Gran Abs Auto 0.03 X10*3/uL (0.00-0.03); Imm Gran Pct Auto 0.4 % (0.0-0.4); Lymphocytes Absolute Auto 3.0 X10*3/uL (1.2-4.9); Mean Corpuscular HGB Conc 34.3 g/dl (31.0-36.0); Mean Corpuscular Hemoglobin 30.3 pg (27.0-33.0); Mean Corpuscular Volume 88.5 fL (80.0-98.0); NRBC Abs Auto 0.000 X10*3/uL (0.0-0.012); NRBC Pct Auto 0.0 /100WBC (0.0-0.2); Platelet Count 224 X10*3/uL (160-400); Red Blood Count 4.35 X10*6/uL (4.60-5.80); White Blood Count 8.6 X10*3/uL (4.8-10.8)
[2025-02-08 05:31] LABS: Alanine Aminotransferase 8 U/L (0-40); Albumin Level 3.2 g/dL (3.5-5.0); Alkaline Phosphatase 56 U/L (39-117); Anion Gap 12 (12-20); Aspartate Amino Transferase 16 U/L (5-37); Blood Urea Nitrogen 12 mg/dL (9-16); Calcium 8.0 mg/dL (8.4-10.2); Carbon Dioxide 23 mmol/L (22-29); Chloride 112 mmol/L (96-108); Creatinine Clr Calc Pharmacy 90.5; Estimated Glomerular Filt Rate > 60; Magnesium 1.8 mg/dL (1.6-2.6); Potassium 3.3 mmol/L (3.3-5.1); Sodium 144 mmol/L (135-145); Total Protein 5.1 g/dL (6.5-8.0)
[2025-02-08] MEDS: Potassium Phosphate/NS 15 MMOL/250 ML PLAST..BAG 62.5 MMOL IV (05:49)
[2025-02-08] MEDS: Albumin Human 25 % 100 ML 133.33 ML IV ×2 (06:01→06:48)
[2025-02-08 06:18] LABS: Hemoglobin A1C 133.2087 umol/L; Total Hemoglobin (HGBA1C) 3464.0962 umol/L
[2025-02-08] MEDS: levETIRAcetam in NaCl (iso-os) 1,000 MG/100 ML PIGGYBACK 400 MG IV ×2 (07:40→20:17)
--- NOTE | 2025-02-08 09:31 | P.PNCC_ITS ---
Subjective Subjective Date of Service: 02/08/25 Critical Care Time (minutes): 60 Physical Exam 2 Vital Signs: Vital Signs: Last Vital Signs Temp 97.7 F 02/08/25 09:00 Pulse 56 02/08/25 09:00 Resp 15 02/08/25 09:00 BP 148/81 H 02/08/25 09:00 Pulse Ox 97 02/08/25 09:00 O2 Del Method Mechanical Ventil ation 02/08/25 09:00 O2 Flow Rate 25 02/07/25 17:24 FiO2 28 02/08/25 09:00 BMI result Body Mass Index 29.0 Const: Other: intubated, sedated; appreciable spontaneous movements General: no acute distress and well developed HEENT: Head: Yes normal to inspection, Yes normocephalic and Yes atraumatic Eyes: General: appearance normal, both eyes and all related structures Neck: Neck: Yes normal visual inspection, Yes full ROM, Yes no meningeal signs, Yes trachea midline and Yes supple Chest: Chest palpation & inspection: normal inspection of the chest Resp: Other: no appreciable overt rales, rhonchi, wheezing Effort & Inspection: normal respiratory effort Cardio: Rate: regular rate Rhythm: regular rhythm GI: Inspection: Yes normal to inspection, No Abdominal wall edema and No distended Palpation (GI): Soft to palpation, not firm, nontender, no guarding and not rigid Skin: General skin exam: no rashes or lesions noted Neuro: General: tone normal and no meningeal signs Extrem: General: Yes normal to inspection, Yes full ROM, Yes capillary refill normal and Yes no clubbing, cyanosis or edema Psych: Other: unable to asses Objective Data Labs 02/08/25 04:51 02/08/25 04:51 Labs: Laboratory Results - last 24 hr 02/07/25 02/07/25 02/07/25 17:03 17:17 18:01 WBC 14.4 H RBC 5.43 Hgb 16.7 Hct 48.5 MCV 89.3 MCH 30.8 MCHC 34.4 RDW 13.3 Plt Count 331 MPV 9.8 Immature Gran % (Auto) Cancelled Neut % (Auto) Cancelled Lymph % (Auto) Cancelled [place] % (Auto) Cancelled Eos % (Auto) Cancelled Baso % (Auto) Cancelled Lymph # (Auto) Cancelled [place] # (Auto) Cancelled Eos # (Auto) Cancelled Baso # (Auto) Cancelled Abs Immat Gran (auto) Cancelled Absolute Neuts (auto) Cancelled Absolute Nucleated RBC 0.000 Nucleated RBC % (auto) 0.0 Neutrophils % (Manual) 69 Lymphocytes % (Manual) 24 Atypical Lymphs % (Man) 1 Monocytes % (Manual) 5 Eosinophils % (Manual) 1 Abs Neuts (Manual) 9.9 H Lymphocytes # (Manual) 3.5 Atyp Lymphs # (Manual) 0.1 Monocytes # (Manual) 0.7 Eosinophils # (Manual) 0.1 Smudge Cells PRESENT Platelet Estimate NORMAL Plt Morphology Comment NORMAL RBC Morphology NOTED PT 11.6 INR 1.0 O2 Saturation ABG pH at Pt Temp ABG pCO2 at Pt Temp ABG pO2 at Pt Temp ABG HCO3 ABG Base Excess (Actual) VBG pH VBG pCO2 VBG pO2 VBG HCO3 VBG O2 Saturation VBG Base Excess Sodium 143 Potassium 3.6 Chloride 108 Carbon Dioxide 16 L Anion Gap 23 H BUN 16 Creatinine 1.33 Estim Creat Clear Calc 53.2 Estimated GFR 55 POC Glucose 186 H Random Glucose 197 H Estimat Average Glucose Hemoglobin A1c % Lactic Acid Lactic Acid F/U @ 2Hr Lactic Acid F/U @ 4Hr Calcium 9.1 Phosphorus Magnesium 2.0 Total Bilirubin 0.5 Direct Bilirubin 0.2 AST 24 ALT 16 Alkaline Phosphatase 79 Troponin I High Sens < 2.7 Total Protein 7.2 Albumin 4.7 Urine Color Yellow Urine Appearance Clear Urine pH 6.0 Ur Specific [place] 1.020 Urine Protein Trace Urine Glucose (UA) Negative Urine Ketones Negative Urine Blood Negative Urine Nitrite Negative Ur Leukocyte Esterase Negative Urine Opiates Screen POSITIVE H Ur Buprenorphine Scrn Not Detected Ur Oxycodone Screen Not Detected Urine Methadone Screen Not Detected Urine Fentanyl Screen POSITIVE H Ur Barbiturates Screen Not Detected Ur Phencyclidine Scrn Not Detected Ur Amphetamines Screen Not Detected U Benzodiazepines Scrn Not Detected Urine Cocaine Screen Not Detected U Marijuana (THC) Screen POSITIVE H Ethyl Alcohol < 10 02/07/25 02/07/25 02/07/25 18:15 19:59 20:00 WBC RBC Hgb Hct MCV MCH MCHC RDW Plt Count MPV Immature Gran % (Auto) Neut % (Auto) Lymph % (Auto) [place] % (Auto) Eos % (Auto) Baso % (Auto) Lymph # (Auto) [place] # (Auto) Eos # (Auto) Baso # (Auto) Abs Immat Gran (auto) Absolute Neuts (auto) Absolute Nucleated RBC Nucleated RBC % (auto) Neutrophils % (Manual) Lymphocytes % (Manual) Atypical Lymphs % (Man) Monocytes % (Manual) Eosinophils % (Manual) Abs Neuts (Manual) Lymphocytes # (Manual) Atyp Lymphs # (Manual) Monocytes # (Manual) Eosinophils # (Manual) Smudge Cells Platelet Estimate Plt Morphology Comment RBC Morphology PT INR O2 Saturation 100.0 ABG pH at Pt Temp 7.39 ABG pCO2 at Pt Temp 33 ABG pO2 at Pt Temp 193 H ABG HCO3 20 L ABG Base Excess (Actual) -3.2 VBG pH VBG pCO2 VBG pO2 VBG HCO3 VBG O2 Saturation VBG Base Excess Sodium Potassium Chloride Carbon Dioxide Anion Gap BUN Creatinine Estim Creat Clear Calc Estimated GFR POC Glucose 136 H Random Glucose Estimat Average Glucose Hemoglobin A1c % Lactic Acid 2.8 H* Lactic Acid F/U @ 2Hr Lactic Acid F/U @ 4Hr Calcium Phosphorus Magnesium Total Bilirubin Direct Bilirubin AST ALT Alkaline Phosphatase Troponin I High Sens Total Protein Albumin Urine Color Urine Appearance Urine pH Ur Specific [place] Urine Protein Urine Glucose (UA) Urine Ketones Urine Blood Urine Nitrite Ur Leukocyte Esterase Urine Opiates Screen Ur Buprenorphine Scrn Ur Oxycodone Screen Urine Methadone Screen Urine Fentanyl Screen Ur Barbiturates Screen Ur Phencyclidine Scrn Ur Amphetamines Screen U Benzodiazepines Scrn Urine Cocaine Screen U Marijuana (THC) Screen Ethyl Alcohol 02/07/25 02/07/25 02/08/25 22:27 23:57 00:40 WBC RBC Hgb Hct MCV MCH MCHC RDW Plt Count MPV Immature Gran % (Auto) Neut % (Auto) Lymph % (Auto) [place] % (Auto) Eos % (Auto) Baso % (Auto) Lymph # (Auto) [place] # (Auto) Eos # (Auto) Baso # (Auto) Abs Immat Gran (auto) Absolute Neuts (auto) Absolute Nucleated RBC Nucleated RBC % (auto) Neutrophils % (Manual) Lymphocytes % (Manual) Atypical Lymphs % (Man) Monocytes % (Manual) Eosinophils % (Manual) Abs Neuts (Manual) Lymphocytes # (Manual) Atyp Lymphs # (Manual) Monocytes # (Manual) Eosinophils # (Manual) Smudge Cells Platelet Estimate Plt Morphology Comment RBC Morphology PT INR O2 Saturation ABG pH at Pt Temp ABG pCO2 at Pt Temp ABG pO2 at Pt Temp ABG HCO3 ABG Base Excess (Actual) VBG pH VBG pCO2 VBG pO2 VBG HCO3 VBG O2 Saturation VBG Base Excess Sodium Potassium Chloride Carbon Dioxide Anion Gap BUN Creatinine Estim Creat Clear Calc Estimated GFR POC Glucose 133 H Random Glucose Estimat Average Glucose Hemoglobin A1c % Lactic Acid Lactic Acid F/U @ 2Hr 2.7 H* Lactic Acid F/U @ 4Hr 1.8 Calcium Phosphorus Magnesium Total Bilirubin Direct Bilirubin AST ALT Alkaline Phosphatase Troponin I High Sens Total Protein Albumin Urine Color Urine Appearance Urine pH Ur Specific [place] Urine Protein Urine Glucose (UA) Urine Ketones Urine Blood Urine Nitrite Ur Leukocyte Esterase Urine Opiates Screen Ur Buprenorphine Scrn Ur Oxycodone Screen Urine Methadone Screen Urine Fentanyl Screen Ur Barbiturates Screen Ur Phencyclidine Scrn Ur Amphetamines Screen U Benzodiazepines Scrn Urine Cocaine Screen U Marijuana (THC) Screen Ethyl Alcohol 02/08/25 02/08/25 04:51 04:53 WBC 8.6 RBC 4.35 L Hgb 13.2 L D Hct 38.5 L D MCV 88.5 MCH 30.3 MCHC 34.3 RDW 13.4 Plt Count 224 D MPV 9.8 Immature Gran % (Auto) 0.4 Neut % (Auto) 57.4 Lymph % (Auto) 35.2 [place] % (Auto) 6.2 Eos % (Auto) 0.7 Baso % (Auto) 0.1 Lymph # (Auto) 3.0 [place] # (Auto) 0.5 Eos # (Auto) 0.1 Baso # (Auto) 0.0 Abs Immat Gran (auto) 0.03 Absolute Neuts (auto) 4.9 Absolute Nucleated RBC 0.000 Nucleated RBC % (auto) 0.0 Neutrophils % (Manual) Lymphocytes % (Manual) Atypical Lymphs % (Man) Monocytes % (Manual) Eosinophils % (Manual) Abs Neuts (Manual) Lymphocytes # (Manual) Atyp Lymphs # (Manual) Monocytes # (Manual) Eosinophils # (Manual) Smudge Cells Platelet Estimate Plt Morphology Comment RBC Morphology PT INR O2 Saturation ABG pH at Pt Temp ABG pCO2 at Pt Temp ABG pO2 at Pt Temp ABG HCO3 ABG Base Excess (Actual) VBG pH 7.61 H* VBG pCO2 24 VBG pO2 89 VBG HCO3 24 VBG O2 Saturation 99.0 VBG Base Excess 4.8 Sodium 144 Potassium 3.3 Chloride 112 H Carbon Dioxide 23 Anion Gap 12 BUN 12 Creatinine 0.87 Estim Creat Clear Calc 90.5 Estimated GFR > 60 POC Glucose Random Glucose 110 Estimat Average Glucose 117 Hemoglobin A1c % 5.7 Lactic Acid Lactic Acid F/U @ 2Hr Lactic Acid F/U @ 4Hr Calcium 8.0 L D Phosphorus 2.5 L Magnesium 1.8 Total Bilirubin 0.3 Direct Bilirubin AST 16 ALT 8 Alkaline Phosphatase 56 Troponin I High Sens Total Protein 5.1 L Albumin 3.2 L Urine Color Urine Appearance Urine pH Ur Specific [place] Urine Protein Urine Glucose (UA) Urine Ketones Urine Blood Urine Nitrite Ur Leukocyte Esterase Urine Opiates Screen Ur Buprenorphine Scrn Ur Oxycodone Screen Urine Methadone Screen Urine Fentanyl Screen Ur Barbiturates Screen Ur Phencyclidine Scrn Ur Amphetamines Screen U Benzodiazepines Scrn Urine Cocaine Screen U Marijuana (THC) Screen Ethyl Alcohol Progress Note: A&P Assessment and plan (1) Acute hypoxemic respiratory failure: Status: Acute (2) Opioid overdose: Status: Acute Plan Patient?is a 59 Y M w/ hypertension presenting to ED on 02/07 w/ obtundation; ED course?c/b intermittent agitation and obtundation, subsequently intubated; ED work-up demonstrating opioids and fentanyl N: intubated, sedated w/ propofol, fentanyl gtts, wean as tolerated; questionable seizure-like activity, empiric levetiracetam, to follow-up EEG CV: no acute issues R: intubated 02/07, wean as tolerated GI: NPO : no acute issues H: no acute issues; chemical DVT prophylaxis ID: no overt stigmata of infection, to continue to monitor E: to monitor hypo-/hyper-glycemia P: polysubstance misuse, addiction medicine when appropriate S: daily updates given to [facility] Stroke Does the patient have a stroke diagnosis?: No VTE Prior VTE?: No VTE Risk Level:: Medical - moderate - high VTE Device Contraindication: N/A - Device Ordered VTE Drug Contraindication: N/A - Med Ordered
[2025-02-08] MEDS: Albumin Human 25 % 50 ML 100 ML IV (09:53)
[2025-02-08] MEDS: Chlorhexidine Gluc Oral Rinse 15 ML MOUTHWASH BUCCAL ×3 (09:54→20:08)
[2025-02-08] MEDS: Calcium Gluconate/NaCl,Iso-Osm 1 GM/50 ML PLAST..BAG IV (09:54)
[2025-02-08] MEDS: fentaNYL citrate/NS 1,000 MCG/100 ML PLAST..BAG 5 MCG IVCONT (09:59)
--- NOTE | 2025-02-08 11:07 | PHA.MEDREC ---
Addendum entered by Clay Cruz PharmD 02/08/25 12:05: reviewed Original Note: Pharmacy Consult ? Medication Reconciliation Pharmacy has completed the medication reconciliation. Pt sedated and unable to talk to. Called pt sister (Radha [phone]) and she was a poor historian with pt medications and stated he takes a BP medication but i do not know the name at this time (she was not familiar with Losartan when asked) and states he fills his meds at [facility]; I got a list faxed over from them I utilized to confirm the med rec.
[2025-02-08 11:38] LABS: Glucose, Whole Blood 112 mg/dL (60-115)
--- NOTE | 2025-02-08 12:35 | HO.WOUND ---
Wound Consult: Initial 59yr old?male admitted to [facility] on 02/07/25- See progress notes and H&P for detailed history.? While on unit for ICU device rounds direct care team requested skin assessment to scrotum concern for abrasions. ? Scrotum Noted for intact raised red pin point linear skin changes. Provider to bedside to assess - noted concern for possible scabies. Provider will determine with skin scraping is needed and topical treatment. At this time skin remains intact and is not noted for skin injury. No topical recommendations needed at this time. Re-consult wound care Nurse for wound deterioration or wound changes.
--- NOTE | 2025-02-08 16:03 | MHC.CM.PN ---
Pt intubated and unable to participate in CM assessment: Information obtained from his sister, Radha. Pt resides with his mother, is independent w/ADL's, has no services or DME and relies on family for transportation. Pt will need CARE team prior to d/c re: [facility]ANG[facility]. Family to assist with transportation to home: no other services anticipated. PCP : [facility]. CM to follow.
[2025-02-08 17:54] LABS: Glucose, Whole Blood 115 mg/dL (60-115)
[2025-02-09] VITALS (42 sets, daily range): BP systolic 91–156; BP diastolic 50–73; PULSE 15–92; RESP 12–121; TEMP 34.4–38.9; O2SAT 90–98
[2025-02-09 00:04] LABS: Glucose, Whole Blood 97 mg/dL (60-115)
[2025-02-09 05:36] LABS: VBG HCO3 25 mmol/L (22-26); VBG O2 % Saturation 89.0 %
[2025-02-09] MEDS: fentaNYL citrate/NS 1,000 MCG/100 ML PLAST..BAG 5 MCG IVCONT (05:41)
[2025-02-09 05:43] LABS: Venous Blood Gas Refer to POC result
[2025-02-09 05:48] LABS: MANUAL DIFF FLAG NO
[2025-02-09 05:52] LABS: Hematocrit 39.1 % (42.0-52.0); Hemoglobin 13.2 g/dl (14.0-18.0); Imm Gran Abs Auto 0.02 X10*3/uL (0.00-0.03); Imm Gran Pct Auto 0.3 % (0.0-0.4); Lymphocytes Absolute Auto 2.6 X10*3/uL (1.2-4.9); Mean Corpuscular HGB Conc 33.8 g/dl (31.0-36.0); Mean Corpuscular Hemoglobin 30.6 pg (27.0-33.0); Mean Corpuscular Volume 90.5 fL (80.0-98.0); NRBC Abs Auto 0.000 X10*3/uL (0.0-0.012); NRBC Pct Auto 0.0 /100WBC (0.0-0.2); Platelet Count 175 X10*3/uL (160-400); Red Blood Count 4.32 X10*6/uL (4.60-5.80); White Blood Count 7.5 X10*3/uL (4.8-10.8)
[2025-02-09 06:09] LABS: Anion Gap 12 (12-20); Blood Urea Nitrogen 9 mg/dL (9-16); Calcium 8.2 mg/dL (8.4-10.2); Carbon Dioxide 24 mmol/L (22-29); Chloride 112 mmol/L (96-108); Creatinine Clr Calc Pharmacy 88.5; Estimated Glomerular Filt Rate > 60; Magnesium 1.9 mg/dL (1.6-2.6); Potassium 3.5 mmol/L (3.3-5.1); Sodium 144 mmol/L (135-145)
[2025-02-09] MEDS: levETIRAcetam in NaCl (iso-os) 1,000 MG/100 ML PIGGYBACK 400 MG IV (08:05)
[2025-02-09] MEDS: Chlorhexidine Gluc Oral Rinse 15 ML MOUTHWASH BUCCAL ×3 (08:05→19:46)
--- NOTE | 2025-02-09 09:16 | PM.CCPN ---
Subjective Subjective Date of Service: 02/09/25 Interval History: no significant overnight events Critical Care Time (minutes): 60 Physical Exam Vital Signs: Vital Signs: Last Vital Signs Temp 99.7 F 02/09/25 09:00 Pulse 53 02/09/25 09:02 Resp 15 02/09/25 09:00 BP 121/70 02/09/25 09:02 Pulse Ox 93 02/09/25 09:00 O2 Del Method Mechanical Ventil ation 02/09/25 09:00 O2 Flow Rate 25 02/07/25 17:24 FiO2 28 02/09/25 09:00 BMI result Body Mass Index 29.0 Const: Other: intubated, sedated; no appreciable spotaneous movements General: no acute distress and well developed HEENT: Head: Yes normal to inspection, Yes normocephalic and Yes atraumatic Eyes: General: appearance normal, both eyes and all related structures Neck: Neck: Yes normal visual inspection, Yes full ROM, Yes no meningeal signs, Yes trachea midline and Yes supple Chest: Chest palpation & inspection: normal inspection of the chest Resp: Other: some appreciable rhonchi; no appreciable overt rales, wheezing Effort & Inspection: normal respiratory effort GI: Inspection: Yes normal to inspection, No Abdominal wall edema and No distended Palpation (GI): Soft to palpation, not firm, nontender, no guarding and not rigid Skin: Other: appreciable excoriations on scrotum, forearms Neuro: General: tone normal and no meningeal signs Extrem: General: Yes normal to inspection, Yes full ROM, Yes capillary refill normal and Yes no clubbing, cyanosis or edema Psych: Other: unable to assess Objective Data Labs 02/09/25 05:28 02/09/25 05:28 Labs: Laboratory Results - last 24 hr 02/08/25 02/08/25 02/09/25 11:32 17:49 00:01 WBC RBC Hgb Hct MCV MCH MCHC RDW Plt Count MPV Immature Gran % (Auto) Neut % (Auto) Lymph % (Auto) [place] % (Auto) Eos % (Auto) Baso % (Auto) Lymph # (Auto) [place] # (Auto) Eos # (Auto) Baso # (Auto) Abs Immat Gran (auto) Absolute Neuts (auto) Absolute Nucleated RBC Nucleated RBC % (auto) VBG pH VBG pCO2 VBG pO2 VBG HCO3 VBG O2 Saturation VBG Base Excess Sodium Potassium Chloride Carbon Dioxide Anion Gap BUN Creatinine Estim Creat Clear Calc Estimated GFR POC Glucose 112 115 97 Random Glucose Calcium Phosphorus Magnesium 02/09/25 02/09/25 05:28 05:30 WBC 7.5 RBC 4.32 L Hgb 13.2 L Hct 39.1 L MCV 90.5 MCH 30.6 MCHC 33.8 RDW 13.8 Plt Count 175 MPV 10.1 Immature Gran % (Auto) 0.3 Neut % (Auto) 56.8 Lymph % (Auto) 34.5 [place] % (Auto) 7.2 Eos % (Auto) 1.1 Baso % (Auto) 0.1 Lymph # (Auto) 2.6 [place] # (Auto) 0.5 Eos # (Auto) 0.1 Baso # (Auto) 0.0 Abs Immat Gran (auto) 0.02 Absolute Neuts (auto) 4.2 Absolute Nucleated RBC 0.000 Nucleated RBC % (auto) 0.0 VBG pH 7.45 H VBG pCO2 36 VBG pO2 59 VBG HCO3 25 VBG O2 Saturation 89.0 VBG Base Excess 2.1 Sodium 144 Potassium 3.5 Chloride 112 H Carbon Dioxide 24 Anion Gap 12 BUN 9 Creatinine 0.89 Estim Creat Clear Calc 88.5 Estimated GFR > 60 POC Glucose Random Glucose 92 Calcium 8.2 L Phosphorus 2.6 L Magnesium 1.9 Microbiology Microbiology Results: Microbiology 02/07/25 20:00 Blood - Venous Blood Culture - Preliminary No growth after 24 hours. 02/07/25 20:00 Blood - Venous Blood Culture - Preliminary No growth after 24 hours. 02/08/25 00:30 Sputum - Suctioned Gram Stain - Final Progress Note: A&P Assessment and plan (1) Opioid overdose: Status: Acute (2) Altered mental status: Status: Acute Plan Patient?is a 59 Y M w/ hypertension presenting to ED on 02/07 w/ obtundation; ED course?c/b intermittent agitation and obtundation, subsequently intubated; ED work-up demonstrating opioids and fentanyl N: intubated, sedated w/ propofol, fentanyl gtts, wean as tolerated; EEG not suggestive of seizure, empiric levetiracetam CV: no acute issues R: intubated 02/07, wean as tolerated GI: NPO : no acute issues H: no acute issues; chemical DVT prophylaxis ID: no overt stigmata of infection, to continue to monitor E: to monitor hypo-/hyper-glycemia P: polysubstance misuse, addiction medicine when appropriate S: daily updates given to sister Quality Stroke Does the patient have a stroke diagnosis?: No VTE Prior VTE?: No VTE Risk Level:: Medical - moderate - high VTE Device Contraindication: N/A - Device Ordered VTE Drug Contraindication: N/A - Med Ordered
[2025-02-09] MEDS: Calcium Gluconate/NaCl,Iso-Osm 1 GM/50 ML PLAST..BAG IV (09:25)
[2025-02-09] MEDS: Potassium Phosphate/NS 15 MMOL/250 ML PLAST..BAG 62.5 MMOL IV (09:25)
[2025-02-09] MEDS: Furosemide 20 MG/2 ML VIAL 10 MG IVPUSH (09:26)
[2025-02-09 11:51] LABS: Glucose, Whole Blood 106 mg/dL (60-115)
--- NOTE | 2025-02-09 12:14 | MHC.CLN ---
F/U PT REMAINS INTUBATED AND SEDATED CURRENTLY DAY 2 NPO IF TF NEEDED; RECOMMEND VITAL AF 1.2 AT MAX GOAL RATE 50ML/HR TO PROVIDE 1440KCALS (1957KCALS WITH SEDATION; 27KCALS/KG), 90G PROTEIN (1.3G/KG), 973ML FREE WATER FROM FORMULA MONITOR TOLERANCE AND LYTES FOLLOWING FOR DIET ADVANCEMENT
[2025-02-09 17:33] LABS: Glucose, Whole Blood 96 mg/dL (60-115)
--- NOTE | 2025-02-09 18:02 | PC.NURSE ---
Assumed care at 0700 - remains intubated and sedated. Failed sedation vacation - positive tracking, unable to follow commands. Unable to titrate levophed off per EMAR. Family at bedside and updated by MD and this RN. Plan for sedation vacation tomorrow.
[2025-02-09 23:13] LABS: Glucose, Whole Blood 99 mg/dL (60-115)
[2025-02-10] VITALS (32 sets, daily range): BP systolic 99–185; BP diastolic 54–92; PULSE 47–77; RESP 12–27; TEMP 35.1–38.6; O2SAT 91–99; BMI 28.2
[2025-02-10] MEDS: fentaNYL citrate/NS 1,000 MCG/100 ML PLAST..BAG 5 MCG IVCONT (01:32)
[2025-02-10 05:07] LABS: VBG HCO3 15 mmol/L (22-26); VBG O2 % Saturation 95.0 %
[2025-02-10 05:31] LABS: MANUAL DIFF FLAG NO
[2025-02-10 05:35] LABS: Hematocrit 39.1 % (42.0-52.0); Hemoglobin 13.1 g/dl (14.0-18.0); Imm Gran Abs Auto 0.02 X10*3/uL (0.00-0.03); Imm Gran Pct Auto 0.2 % (0.0-0.4); Lymphocytes Absolute Auto 2.4 X10*3/uL (1.2-4.9); Mean Corpuscular HGB Conc 33.5 g/dl (31.0-36.0); Mean Corpuscular Hemoglobin 30.5 pg (27.0-33.0); Mean Corpuscular Volume 90.9 fL (80.0-98.0); NRBC Abs Auto 0.000 X10*3/uL (0.0-0.012); NRBC Pct Auto 0.0 /100WBC (0.0-0.2); Platelet Count 190 X10*3/uL (160-400); Red Blood Count 4.30 X10*6/uL (4.60-5.80); White Blood Count 9.7 X10*3/uL (4.8-10.8)
[2025-02-10 05:41] LABS: Venous Blood Gas Refer to POC result
[2025-02-10 05:52] LABS: Albumin Level 3.1 g/dL (3.5-5.0)
[2025-02-10 06:06] LABS: Anion Gap 12 (12-20); Blood Urea Nitrogen 8 mg/dL (9-16); Calcium 6.6 mg/dL (8.4-10.2); Carbon Dioxide 19 mmol/L (22-29); Chloride 117 mmol/L (96-108); Creatinine Clr Calc Pharmacy 89.3; Estimated Glomerular Filt Rate > 60; Magnesium 1.6 mg/dL (1.6-2.6); Potassium 2.8 mmol/L (3.3-5.1); Sodium 145 mmol/L (135-145)
[2025-02-10] MEDS: Calcium Gluconate/NaCl,Iso-Osm 2 GM/100 ML PLAST..BAG IV (06:26)
[2025-02-10] MEDS: Potassium Phosphate/NS 15 MMOL/250 ML PLAST..BAG 62.5 MMOL IV ×2 (06:30→11:51)
[2025-02-10] MEDS: Potassium Chloride Packet 20 MEQ PACKET 40 MEQ PO (06:30)
[2025-02-10 06:40] LABS: Glucose, Whole Blood 154 mg/dL (60-115)
[2025-02-10] MEDS: Chlorhexidine Gluc Oral Rinse 15 ML MOUTHWASH BUCCAL (08:01)
[2025-02-10] MEDS: levETIRAcetam in NaCl (iso-os) 1,000 MG/100 ML PIGGYBACK 400 MG IV (08:06)
--- NOTE | 2025-02-10 09:21 | P.PNCC_ITS ---
Subjective Subjective Date of Service: 02/10/25 Interval History: no significant overnight events Critical Care Time (minutes): 60 Physical Exam 2 Vital Signs: Vital Signs: Last Vital Signs Temp 100.4 F 02/10/25 08:04 Pulse 64 02/10/25 08:00 Resp 18 02/10/25 08:00 BP 150/68 H 02/10/25 08:00 Pulse Ox 96 02/10/25 08:00 O2 Del Method Mechanical Ventil ation 02/10/25 08:00 O2 Flow Rate 25 02/07/25 17:24 FiO2 28 02/10/25 08:25 BMI result Body Mass Index 28.2 Const: Other: intubated, sedated General: comfortable, no acute distress and well developed HEENT: Head: Yes normal to inspection, Yes normocephalic and Yes atraumatic Eyes: General: appearance normal, both eyes and all related structures Neck: Neck: Yes normal visual inspection, Yes full ROM, Yes no meningeal signs, Yes trachea midline and Yes supple Chest: Chest palpation & inspection: normal inspection of the chest Resp: Other: no appreciable overt rales, rhonchi, wheezing Effort & Inspection: normal respiratory effort Cardio: Rate: bradycardic Rhythm: regular rhythm GI: Inspection: Yes normal to inspection, No Abdominal wall edema and No distended Palpation (GI): Soft to palpation, not firm, nontender, no guarding and not rigid Skin: Other: appreciable excoriations scrotum Neuro: General: tone normal and no meningeal signs Extrem: General: Yes normal to inspection, Yes full ROM, Yes capillary refill normal and Yes no clubbing, cyanosis or edema Psych: Other: unable to assess Objective Data Labs 02/10/25 04:57 02/10/25 04:57 Labs: Laboratory Results - last 24 hr 02/09/25 02/09/25 02/09/25 11:42 17:17 23:09 WBC RBC Hgb Hct MCV MCH MCHC RDW Plt Count MPV Immature Gran % (Auto) Neut % (Auto) Lymph % (Auto) [place] % (Auto) Eos % (Auto) Baso % (Auto) Lymph # (Auto) [place] # (Auto) Eos # (Auto) Baso # (Auto) Abs Immat Gran (auto) Absolute Neuts (auto) Absolute Nucleated RBC Nucleated RBC % (auto) VBG pH VBG pCO2 VBG pO2 VBG HCO3 VBG O2 Saturation VBG Base Excess Sodium Potassium Chloride Carbon Dioxide Anion Gap BUN Creatinine Estim Creat Clear Calc Estimated GFR POC Glucose 106 96 99 Random Glucose Calcium Phosphorus Magnesium Albumin 02/10/25 02/10/25 02/10/25 04:57 05:03 06:37 WBC 9.7 RBC 4.30 L Hgb 13.1 L Hct 39.1 L MCV 90.9 MCH 30.5 MCHC 33.5 RDW 13.4 Plt Count 190 MPV 10.1 Immature Gran % (Auto) 0.2 Neut % (Auto) 67.3 Lymph % (Auto) 25.2 [place] % (Auto) 6.1 Eos % (Auto) 1.1 Baso % (Auto) 0.1 Lymph # (Auto) 2.4 [place] # (Auto) 0.6 Eos # (Auto) 0.1 Baso # (Auto) 0.0 Abs Immat Gran (auto) 0.02 Absolute Neuts (auto) 6.5 Absolute Nucleated RBC 0.000 Nucleated RBC % (auto) 0.0 VBG pH 7.47 H VBG pCO2 20 VBG pO2 65 VBG HCO3 15 L VBG O2 Saturation 95.0 VBG Base Excess -6.7 Sodium 145 Potassium 2.8 L* Chloride 117 H Carbon Dioxide 19 L Anion Gap 12 BUN 8 L Creatinine 0.87 Estim Creat Clear Calc 89.3 Estimated GFR > 60 POC Glucose 154 H Random Glucose 65 Calcium 6.6 L D Phosphorus 2.3 L Magnesium 1.6 Albumin 3.1 L Microbiology Microbiology Results: Microbiology 02/07/25 20:00 Blood - Venous Blood Culture - Preliminary No growth after 48 hours. 02/07/25 20:00 Blood - Venous Blood Culture - Preliminary No growth after 48 hours. 02/08/25 00:30 Sputum - Suctioned Gram Stain - Final 02/08/25 00:30 Sputum - Suctioned Sputum Culture - Preliminary Culture in progress. Progress Note: A&P Assessment and plan (1) Opioid overdose: Status: Acute (2) Altered mental status: Status: Acute Plan Patient?is a 59 Y M w/ hypertension presenting to ED on 02/07 w/ obtundation; ED course?c/b intermittent agitation and obtundation, subsequently intubated; ED work-up demonstrating opioids and fentanyl N: intubated, sedated w/ propofol, fentanyl gtts, wean as tolerated; EEG not suggestive of seizure, empiric levetiracetam CV: hypotension, likely d/t sedation, norepinephrine gtt, wean as tolerated R: intubated 02/07, wean as tolerated GI: NPO : no acute issues H: no acute issues; chemical DVT prophylaxis ID: fever, to continue to monitor for additional stigmata of infection E: to monitor hypo-/hyper-glycemia P: polysubstance misuse, addiction medicine when appropriate S: daily updates given to [facility] Quality Stroke Does the patient have a stroke diagnosis?: No VTE Prior VTE?: No VTE Risk Level:: Medical - moderate - high VTE Device Contraindication: N/A - Device Ordered VTE Drug Contraindication: N/A - Med Ordered
--- NOTE | 2025-02-10 09:52 | MHC.CLN ---
F/U PT REMAINS INTUBATED AND SEDATED CURRENTLY DAY 4 NPO IF TF NEEDED; RECOMMEND VITAL AF 1.2 AT MAX GOAL RATE 50ML/HR TO PROVIDE 1440KCALS (1957KCALS WITH SEDATION; 27KCALS/KG), 90G PROTEIN (1.3G/KG), 973ML FREE WATER FROM FORMULA MONITOR TOLERANCE AND LYTES FOLLOWING FOR DIET ADVANCEMENT
[2025-02-10] MEDS: Albumin Human 25 % 50 ML 100 ML IV (11:52)
[2025-02-10] MEDS: dexmedeTOMIDine HCL/NS 400 MCG/100 ML PLAST..BAG 19.8 MCG IVCONT ×3 (12:07→20:34)
[2025-02-10 12:19] LABS: Glucose, Whole Blood 106 mg/dL (60-115)
--- NOTE | 2025-02-10 13:40 | MHC.CM.PN ---
PT REMAINS IN ICU ON VENTILATORY SUPPORT. CM WILL CONTINUE TO FOLLOW FOR PLAN.
[2025-02-10 17:23] LABS: Glucose, Whole Blood 113 mg/dL (60-115)
--- NOTE | 2025-02-10 19:24 | PC.NURSE ---
Patient SAT and PSV trial this morning both stressful. Followed simple commands and initiated effective breaths with reduced sedation. Positive cuff leak therefore patient extubated on MD order. Camera placed in room. Patient was restful for about an hour then became increasingly restless, so sitter placed at bedside. Patient then became combative and agitated. Patient was not responding to redirection or education, attempting to get OOB. Patient was confused, alert to self only stating he was leaving. Security called overhead for assistance while trying to medicate patient, Versed given (per MAR) with good effect towards calming patient. Patient started on Precedex GTT and soft wrist restraints initiated. Remains lightly sedated with spontaneous awakening following simple commands, and tracking.
[2025-02-10] MEDS: 0.9 % Sodium Chloride Flush 3 ML SYRINGE IVFLUSH (22:12)
[2025-02-11] VITALS (25 sets, daily range): BP systolic 92–160; BP diastolic 59–94; PULSE 46–66; RESP 12–24; TEMP 36.1–36.6; O2SAT 93–98; BMI 28.2
[2025-02-11 00:15] LABS: Glucose, Whole Blood 136 mg/dL (60-115)
[2025-02-11] MEDS: dexmedeTOMIDine HCL/NS 400 MCG/100 ML PLAST..BAG 19.8 MCG IVCONT ×2 (01:11→05:41)
[2025-02-11 05:50] LABS: VBG HCO3 21 mmol/L (22-26); VBG O2 % Saturation 98.0 %
[2025-02-11 06:00] LABS: MANUAL DIFF FLAG NO
[2025-02-11 06:06] LABS: Hematocrit 45.1 % (42.0-52.0); Hemoglobin 16.0 g/dl (14.0-18.0); Imm Gran Abs Auto 0.03 X10*3/uL (0.00-0.03); Imm Gran Pct Auto 0.4 % (0.0-0.4); Lymphocytes Absolute Auto 1.5 X10*3/uL (1.2-4.9); Mean Corpuscular HGB Conc 35.5 g/dl (31.0-36.0); Mean Corpuscular Hemoglobin 30.6 pg (27.0-33.0); Mean Corpuscular Volume 86.2 fL (80.0-98.0); NRBC Abs Auto 0.000 X10*3/uL (0.0-0.012); NRBC Pct Auto 0.0 /100WBC (0.0-0.2); Platelet Count 195 X10*3/uL (160-400); Red Blood Count 5.23 X10*6/uL (4.60-5.80); White Blood Count 7.8 X10*3/uL (4.8-10.8)
[2025-02-11 06:41] LABS: Venous Blood Gas Refer to POC result
[2025-02-11 06:50] LABS: Albumin Level 4.1 g/dL (3.5-5.0); Anion Gap 14 (12-20); Blood Urea Nitrogen 12 mg/dL (9-16); Calcium 9.0 mg/dL (8.4-10.2); Carbon Dioxide 22 mmol/L (22-29); Chloride 110 mmol/L (96-108); Creatinine Clr Calc Pharmacy 114.3; Estimated Glomerular Filt Rate > 60; Magnesium 1.9 mg/dL (1.6-2.6); Potassium 3.9 mmol/L (3.3-5.1); Sodium 142 mmol/L (135-145)
--- NOTE | 2025-02-11 07:10 | PC.NURSE ---
Upon initial assessment at 2000- pt sedated on precedex, intermittently hallucinating, agitated, attempted to get OOB, pulling at lines/tubes. Somewhat verbally redirectable. Afebrile. SB on tele, HR 40-50s. SBP up to 180s, hydralazine 10 mg IVP given x1 with good effect. SpO2 >02% on room air. Bedside nursing swallow passed, diet ordered by provider. Indwelling urinary catheter in place, UOP as charted. Skin overall intact. Repositioned in bed q2hrs with pillows. Telesitter in room. Bed locked in lowest position, alarm on. See EMR/flowsheet for further details.
[2025-02-11] MEDS: 0.9 % Sodium Chloride Flush 3 ML SYRINGE IVFLUSH ×3 (08:52→20:26)
--- NOTE | 2025-02-11 09:22 | PM.CCPN ---
Subjective Subjective Date of Service: 02/11/25 Interval History: intermittent agitation necessitating dexmedetomidine gtt Critical Care Time (minutes): 60 Physical Exam Vital Signs: Vital Signs: Last Vital Signs Temp 97.5 F 02/11/25 08:00 Pulse 56 02/11/25 09:19 Resp 20 02/11/25 09:19 BP 153/79 H 02/11/25 08:00 Pulse Ox 95 02/11/25 07:00 O2 Del Method Room Air 02/11/25 08:00 O2 Flow Rate 2 02/10/25 23:00 FiO2 28 02/10/25 10:47 BMI result Body Mass Index 28.2 Const: Other: intermittent agitation, at times re-directable General: no acute distress HEENT: Head: Yes normal to inspection, Yes normocephalic and Yes atraumatic Eyes: General: appearance normal, both eyes and all related structures Neck: Neck: Yes normal visual inspection, Yes full ROM, Yes no meningeal signs, Yes trachea midline and Yes supple Chest: Chest palpation & inspection: normal inspection of the chest Resp: Other: diminished breath sounds throughout, some appreciable wheezing; no appreciable overt rales, rhonchi Effort & Inspection: normal respiratory effort Cardio: Rate: bradycardic Rhythm: regular rhythm GI: Inspection: Yes normal to inspection, No Abdominal wall edema and No distended Palpation (GI): Soft to palpation, not firm, nontender, no guarding and not rigid Skin: Other: appreciable excoriations forearms, scrotum Neuro: General: tone normal, moves all extremities and no meningeal signs Extrem: General: Yes normal to inspection, Yes full ROM, Yes capillary refill normal and Yes no clubbing, cyanosis or edema Psych: Other: intermittent agitation Objective Data Labs 02/11/25 05:36 02/11/25 05:36 Labs: Laboratory Results - last 24 hr 02/10/25 02/10/25 02/11/25 12:09 17:18 00:11 WBC RBC Hgb Hct MCV MCH MCHC RDW Plt Count MPV Immature Gran % (Auto) Neut % (Auto) Lymph % (Auto) [place] % (Auto) Eos % (Auto) Baso % (Auto) Lymph # (Auto) [place] # (Auto) Eos # (Auto) Baso # (Auto) Abs Immat Gran (auto) Absolute Neuts (auto) Absolute Nucleated RBC Nucleated RBC % (auto) VBG pH VBG pCO2 VBG pO2 VBG HCO3 VBG O2 Saturation VBG Base Excess Sodium Potassium Chloride Carbon Dioxide Anion Gap BUN Creatinine Estim Creat Clear Calc Estimated GFR POC Glucose 106 113 136 H Random Glucose Calcium Phosphorus Magnesium Albumin 02/11/25 02/11/25 05:36 05:40 WBC 7.8 RBC 5.23 D Hgb 16.0 D Hct 45.1 MCV 86.2 MCH 30.6 MCHC 35.5 RDW 12.4 Plt Count 195 MPV 9.9 Immature Gran % (Auto) 0.4 Neut % (Auto) 73.3 H Lymph % (Auto) 18.6 L [place] % (Auto) 5.9 Eos % (Auto) 1.7 Baso % (Auto) 0.1 Lymph # (Auto) 1.5 [place] # (Auto) 0.5 Eos # (Auto) 0.1 Baso # (Auto) 0.0 Abs Immat Gran (auto) 0.03 Absolute Neuts (auto) 5.7 Absolute Nucleated RBC 0.000 Nucleated RBC % (auto) 0.0 VBG pH 7.51 H VBG pCO2 27 VBG pO2 88 VBG HCO3 21 L VBG O2 Saturation 98.0 VBG Base Excess 0.4 Sodium 142 Potassium 3.9 D Chloride 110 H Carbon Dioxide 22 Anion Gap 14 BUN 12 Creatinine 0.68 Estim Creat Clear Calc 114.3 Estimated GFR > 60 POC Glucose Random Glucose 115 Calcium 9.0 D Phosphorus 2.3 L Magnesium 1.9 Albumin 4.1 Microbiology Microbiology Results: Microbiology 02/08/25 00:30 Sputum - Suctioned Gram Stain - Final 02/08/25 00:30 Sputum - Suctioned Sputum Culture - Final Streptococcus pyogenes (Grp A) 02/07/25 20:00 Blood - Venous Blood Culture - Preliminary No growth after 48 hours. 02/07/25 20:00 Blood - Venous Blood Culture - Preliminary No growth after 48 hours. Progress Note: A&P Assessment and plan (1) Altered mental status: Status: Acute (2) Opioid overdose: Status: Acute Plan Patient?is a 59 Y M w/ hypertension presenting to ED on 02/07 w/ obtundation; ED course?c/b intermittent agitation and obtundation, subsequently intubated; ED work-up demonstrating opioids and fentanyl N: intermittent agitation, dexmedetomidine gtt, wean as tolerated; EEG not suggestive of seizure, empiric levetiracetam CV: no acute issues; hypertension R: intubated 02/07, extubated 02/10 GI: NPO, advance as tolerated : no acute issues H: no acute issues; chemical DVT prophylaxis ID: fever, to continue to monitor for additional stigmata of infection E: to monitor hypo-/hyper-glycemia P: polysubstance misuse, addiction medicine when appropriate S: daily updates given to sister Quality Stroke Does the patient have a stroke diagnosis?: No VTE Prior VTE?: No VTE Risk Level:: Medical - moderate - high VTE Device Contraindication: N/A - Device Ordered VTE Drug Contraindication: N/A - Med Ordered
[2025-02-11] MEDS: Albuterol/Iprat 2.5/0.5MG 3 ML AMPUL.NEB INHALE (09:24)
[2025-02-11] MEDS: levETIRAcetam in NaCl (iso-os) 1,000 MG/100 ML PIGGYBACK 400 MG IV (09:25)
--- NOTE | 2025-02-11 10:42 | MHC.CLN ---
F/U PT EXTUBATED 02/10 DIET ADVANCED TO REGULAR MONITOR PO INTAKE RD TO FOLLOW WEEKLY
[2025-02-11] MEDS: Potassium Phosphate/NS 15 MMOL/250 ML PLAST..BAG 62.5 MMOL IV (10:44)
[2025-02-11 12:02] LABS: Glucose, Whole Blood 104 mg/dL (60-115)
[2025-02-11] MEDS: dexmedeTOMIDine HCL/NS 400 MCG/100 ML PLAST..BAG 9.9 MCG IVCONT (14:54)
--- NOTE | 2025-02-11 15:17 | MHC.CM.PN ---
Pt extubated and on n/c O2. Receiving Precedex for s/sx agitation: no transfer to medical floor at this time. Pt from home w/family: unknown d/c needs: CM to follow
--- NOTE | 2025-02-11 16:20 | MHC.SL.SWA ---
Speech Pathologist Impression: WFL Risk of Aspiration Due to: Dysphasia Diet Status: Liquid Consistency and Strategies for Safe Swallow: Liquid Intake Recommendation: Thin Liquid Intake Strategies: Solid Food Consistency: Dietary Recommendations: Regular Additional Modifications to Solid Foods: Oral Medication Intake: Whole with Liquid Please contact the pharmacy regarding appropriate crushable or liquid drug formulations that are available whenever modified delivery is recommended. Compensatory Strategies and Precautions to be Taken for Safe Swallow: Supervision While Eating and Drinking for Safe Swallow: None Needed Foods to Avoid: Patient seen for swallow assessment s/p intubation, presents with all aspects of oral motor function, and all aspects of swallow WFL. Recommend continue on regular diet with thin liquids, pills whole with liquid. RN and MD advised of recommendations in person. No further speech services needed, PRECINCT COMMANDING OFFICER will complete order. Swallowing Recommended Treatments: Recommendation for Speech: Comment: Frequency/Duration: Date Range for Service Req: Timeline to reassess: Stock Trader Clinican/Clinical Fellow: No Supervisory Statement: I have reviewed and agree with the student/clinical fellow's documentation: N/A Speech Language Pathologist: Cora Fernandes M.A., CCC-PRECINCT COMMANDING OFFICER
[2025-02-11 18:19] LABS: Glucose, Whole Blood 171 mg/dL (60-115)
--- NOTE | 2025-02-11 19:40 | HE.ICUCC ---
ICU Critical Care Nursing Note ICU Day #:4 Neuro: Agitated, Impulsive and attempting to remove lines, bilateral wrist restraints in place, D/C 'd after patient became less confused and more coherent, agreed to not pull on lines, continues on Precedex gtt, See MAR Cardiac: SB Resp: NC after Versed administration while asleep GI/: patient removed arellano this AM, refusing bladder scan til this evening, 263 noted, patient stated no need to urinate. Endocrine: refused Lispro this evening Integumentary/Musculoskeletal: Moves all extremeties Psychosocial (family etc.): Family at bedside this evening Infectious Disease: Scabies test Pending
[2025-02-12] VITALS (16 sets, daily range): BP systolic 113–161; BP diastolic 57–87; PULSE 43–77; RESP 12–21; TEMP 36.4–36.9; O2SAT 93–99; BMI 28.5
[2025-02-12] MEDS: dexmedeTOMIDine HCL/NS 400 MCG/100 ML PLAST..BAG 13.86 MCG IVCONT (00:12)
--- NOTE | 2025-02-12 04:07 | PC.NURSE ---
Upon initial assessment at 1999- patient sedated on Precedex; intermittently agitated and restless but verbally redirectable. A&Ox3 (forgetful to situation). Afebrile. SB on tele, HR 40-50s. SBP WNL. SpO2 >92% on room air. Tolerating PO intake. No BM this shift. Ambulates to stand and voids in urinal. Skin overall intact. Able to reposition self in bed. Telesitter in room. Bed locked in lowest position, alarm on, call anaya within reach. See EMR/flowsheet for further details.
[2025-02-12 06:20] LABS: MANUAL DIFF FLAG NO
[2025-02-12 06:43] LABS: Anion Gap 13 (12-20); Blood Urea Nitrogen 12 mg/dL (9-16); Calcium 8.8 mg/dL (8.4-10.2); Carbon Dioxide 23 mmol/L (22-29); Chloride 111 mmol/L (96-108); Creatinine Clr Calc Pharmacy 104.1; Estimated Glomerular Filt Rate > 60; Hematocrit 44.9 % (42.0-52.0); Hemoglobin 15.0 g/dl (14.0-18.0); Imm Gran Abs Auto 0.02 X10*3/uL (0.00-0.03); Imm Gran Pct Auto 0.3 % (0.0-0.4); Lymphocytes Absolute Auto 1.7 X10*3/uL (1.2-4.9); Magnesium 2.1 mg/dL (1.6-2.6); Mean Corpuscular HGB Conc 33.4 g/dl (31.0-36.0); Mean Corpuscular Hemoglobin 29.6 pg (27.0-33.0); Mean Corpuscular Volume 88.7 fL (80.0-98.0); NRBC Abs Auto 0.000 X10*3/uL (0.0-0.012); NRBC Pct Auto 0.0 /100WBC (0.0-0.2); Platelet Count 191 X10*3/uL (160-400); Potassium 3.8 mmol/L (3.3-5.1); Red Blood Count 5.06 X10*6/uL (4.60-5.80); Sodium 143 mmol/L (135-145); White Blood Count 7.0 X10*3/uL (4.8-10.8)
[2025-02-12] MEDS: levETIRAcetam in NaCl (iso-os) 1,000 MG/100 ML PIGGYBACK 400 MG IV (08:24)
[2025-02-12] MEDS: 0.9 % Sodium Chloride Flush 3 ML SYRINGE IVFLUSH ×2 (08:25→20:13)
--- NOTE | 2025-02-12 09:41 | P.PNCC_ITS ---
Subjective Subjective Date of Service: 02/12/25 Interval History: no significant overnight events; interval improvement encephalopathy, awake, alert, oriented, and pleasant Critical Care Time (minutes): 0 Physical Exam 2 Vital Signs: Vital Signs: Last Vital Signs Temp 97.5 F 02/12/25 08:00 Pulse 58 02/12/25 09:00 Resp 13 02/12/25 09:00 BP 127/72 02/12/25 09:00 Pulse Ox 97 02/12/25 07:00 O2 Del Method Room Air 02/12/25 09:00 O2 Flow Rate 2 02/11/25 22:00 FiO2 30 02/11/25 18:00 BMI result Body Mass Index 28.5 Const: General: cooperative, healthy appearing, comfortable, no acute distress, well developed, alert, awake and Physically active O rientation/consciousness: patient oriented x3 HEENT: Head: Yes normal to inspection, Yes normocephalic and Yes atraumatic Eyes: General: appearance normal, both eyes and all related structures Neck: Neck: Yes normal visual inspection, Yes full ROM, Yes no meningeal signs, Yes trachea midline and Yes supple Chest: Chest palpation & inspection: normal inspection of the chest Resp: Other: no appreciable rales, rhonchi, wheezing Effort & Inspection: normal respiratory effort Cardio: Rate: bradycardic Rhythm: regular rhythm GI: Inspection: Yes normal to inspection, No Abdominal wall edema and No distended Palpation (GI): Soft to palpation, not firm, nontender, no guarding and not rigid Skin: Other: some excoriations forearm, scrotum Neuro: General: patient oriented x3, tone normal, moves all extremities, no meningeal signs and no focal motor deficits Extrem: General: Yes normal to inspection, Yes full ROM, Yes capillary refill normal and Yes no clubbing, cyanosis or edema Psych: Appearance: grossly normal Objective Data Labs 02/12/25 05:54 02/12/25 05:54 Labs: Laboratory Results - last 24 hr 02/11/25 02/11/25 02/12/25 11:52 18:15 05:54 WBC 7.0 RBC 5.06 Hgb 15.0 Hct 44.9 MCV 88.7 MCH 29.6 MCHC 33.4 RDW 12.9 Plt Count 191 MPV 10.0 Immature Gran % (Auto) 0.3 Neut % (Auto) 67.5 Lymph % (Auto) 23.7 [place] % (Auto) 6.0 Eos % (Auto) 2.4 Baso % (Auto) 0.1 Lymph # (Auto) 1.7 [place] # (Auto) 0.4 Eos # (Auto) 0.2 Baso # (Auto) 0.0 Abs Immat Gran (auto) 0.02 Absolute Neuts (auto) 4.7 Absolute Nucleated RBC 0.000 Nucleated RBC % (auto) 0.0 Sodium 143 Potassium 3.8 Chloride 111 H Carbon Dioxide 23 Anion Gap 13 BUN 12 Creatinine 0.75 Estim Creat Clear Calc 104.1 Estimated GFR > 60 POC Glucose 104 171 H Random Glucose 123 H Calcium 8.8 Phosphorus 2.0 L Magnesium 2.1 Microbiology Microbiology Results: Microbiology 02/08/25 00:30 Sputum - Suctioned Gram Stain - Final 02/08/25 00:30 Sputum - Suctioned Sputum Culture - Final Streptococcus pyogenes (Grp A) 02/07/25 20:00 Blood - Venous Blood Culture - Preliminary No growth after 48 hours. 02/07/25 20:00 Blood - Venous Blood Culture - Preliminary No growth after 48 hours. Progress Note: A&P Assessment and plan (1) Altered mental status: Status: Acute (2) Opioid overdose: Status: Acute Plan Patient?is a 59 Y M w/ hypertension presenting to ED on 02/07 w/ obtundation; ED course?c/b intermittent agitation and obtundation, subsequently intubated; ED work-up demonstrating opioids and fentanyl N: encephalopathy, improved; EEG not suggestive of seizure, empiric levetiracetam CV: no acute issues; hypertension R: intubated 02/07, extubated 02/10 GI: regular diet : no acute issues H: no acute issues; chemical DVT prophylaxis ID: no overt stigmata of infection E: to monitor hypo-/hyper-glycemia P: polysubstance misuse, addiction medicine when appropriate S: daily updates given to [facility] Quality Stroke Does the patient have a stroke diagnosis?: No VTE Prior VTE?: No VTE Risk Level:: Medical - moderate - high VTE Device Contraindication: N/A - Device Ordered VTE Drug Contraindication: N/A - Med Ordered
--- NOTE | 2025-02-12 11:18 | PM.EVENT ---
Event Note Date of Service: 02/12/25 Event Note: This is a 59 year old male with history of HTN who was brought in by family on 02/07 due to becoming unresponsive. He arrived in a private vehicle and per ED documentation was unresponsive and not breathing on arrival. He received 8 mg of intranasal Narcan with no response. He was transferred to a stretcher and they began bagging him, shortly after he woke up but was agitated and disoriented. Per ED notes He seemed to have a dramatic reaction with the patient displaying dramatic flailing body movements and hyperventilation and diaphoresis. He was tachycardic, hypertensive and tachypneic. He was intubated in the emergency department for airway protection. Tox screen was positive for opiates and fentanyl. Due to abnormal movement there was some question about seizure activity and he was started on IV keppra. He was extubated 02/10 but continued to require dexmedetomidine gtt due to intermittent agitation. weaned off of dex drip and downgraded to the medical floor 02/12. OUD with drug overdose requiring intubation addiction medicine consult Possible seizure like activity started on empiric IV keppra, dose decreased EEG negative neuro consult pending HTN resumed on baseline losartan started on empiric zosyn for possible aspiration. cxr showing mild LLL atelectasis. stable on room air. sputum culture growing streop pyogenes transition to augmentin DVT ppx - lovenox Time Spent With Patient Time: Total time managing care of this patient today ____ minutes.
[2025-02-12 12:30] LABS: Glucose, Whole Blood 111 mg/dL (60-115)
--- NOTE | 2025-02-12 14:44 | PC.NURSE ---
patient off precedex since 0600, A+Ox4 calm and following commands, BP slightly elevated prior to transfer, Amlodipine 5mg given as ordered, Augmentin unavailable in ICU pyxis, receiving RN made aware.
--- NOTE | 2025-02-12 15:26 | P.CNNE_ITS ---
History of Present Illness Data of Consult Service Date: 02/12/25 Primary Care Provider: [facility] Reason for consult: Possible seizure disorder 59 years old man who, according to him, used to work and a tobacco form in [place] and did not drink alcohol or use drugs was brought to hospital after he was found unresponsive at home. Apparently he was ?fine? before family found him unresponsive were not able to wake him up. In emergency room he was still in that state and was intubated and couple of days later extubated. During this time while he was being intubated and later he was noted to have flailing movements suggestive of seizure or agitation. He was not known to have any previous history of seizure disorder. Review of Systems 2 Review of Systems: Before hospitalization Constitutional:?No fever, chills, fatigue, weight loss, or night sweats. HEENT:?No headache, vision changes, hearing loss, nasal congestion, sore throat. Cardiovascular:?No chest pain, palpitations, orthopnea, PND, or leg swelling. Respiratory:?No cough, shortness of breath, wheezing, or hemoptysis. Gastrointestinal:?No nausea, vomiting, abdominal pain, diarrhea, or constipation. Genitourinary:?No dysuria, frequency, incontinence, or hematuria. Musculoskeletal:?No joint pain, stiffness, weakness, or muscle aches. Neurological:?No dizziness, syncope, seizures, numbness, tingling, weakness, tremors, memory loss. Psychiatric:?No anxiety, depression, mood swings, sleep disturbance, or hallucinations. Endocrine:?No heat/cold intolerance, polydipsia, polyuria, or hair/skin changes. Hematologic/Lymphatic:?No easy bruising, bleeding, or lymphadenopathy. Integumentary (Skin):?No rash, lesions, itching, or color changes. Allergic/Immunologic:?No seasonal allergies, hives, or recurrent infections. [facility] Past Medical History Medical History Hypertension Social History Social History Household Members: Unknown / Unable to assess Housing: Unknown / Unable to assess Patient Tobacco Use Status: Tobacco use Unknown Currently Displaying Signs/Symptoms of Drug Intoxication Withdrawal: No Advance Directives: No Advance Directives Information Provided: No Do you have a plan to hurt others: No Plan Nutrition Risks: On aspiration precautions Meds Allergies Allergy/AdvReac Type Severity Reaction Status Date / Time No Known Allergies Allergy Verified 02/07/25 17:09 Active Medications: Current Medications Acetaminophen (Acetaminophen 325 Mg Tablet) 975 mg PO Q6H PRN PRN Reason: Pain, Moderate(Pain Scale 4-6) Last Admin: 02/12/25 14:35 Dose: 975 mg Albuterol/Ipratropium (Albuterol/Iprat 2.5/0.5mg 3 Ml Ampul.Neb) 3 ml INHALE RQ4H WHILE AWAKE PRN PRN Reason: Wheezing Amlodipine Besylate (Amlodipine Besylate 5 Mg Tablet) 5 mg PO DAILY REGGIE; Protocol Last Admin: 02/12/25 14:35 Dose: 5 mg Amoxicillin/Clavulanate Potassium (Amoxicillin/Potassium Clav 875 Mg Tablet) 875 mg PO Q12H REGGIE Last Admin: 02/12/25 14:49 Dose: 875 mg Dextrose (Dextrose 50 % 25 Gm/50 Ml Syringe) 25 gm IVPUSH Q15M PRN; Protocol PRN Reason: per Hypoglycemia Standing Ord. Enoxaparin Sodium (Enoxaparin Sodium 40 Mg/0.4 Ml Syringe) 40 mg SUBCUT Q24H REGGIE Last Admin: 02/11/25 20:25 Dose: 40 mg Glucose (Glucose Gel 15 Gm Gel..Gram.) 15 gm PO Q15M PRN; Protocol PRN Reason: per Hypoglycemia Standing Ord. Levetiracetam (Keppra) 1,000 mg in 100 mls @ 400 mls/hr IV DAILY REGGIE Last Infusion: 02/12/25 08:40 Dose: Infused Losartan Potassium (Losartan Potassium 25 Mg Tablet) 25 mg PO DAILY REGGIE; Protocol Last Admin: 02/12/25 08:24 Dose: 25 mg Sodium Chloride (0.9 % Sodium Chloride Flush 3 Ml Syringe) 3 ml IVFLUSH QSHIFT [facility] Last Admin: 02/12/25 08:25 Dose: 3 ml Home Medications ?Medication ?Instructions ?Recorded ?Confirmed ?Last Taken ?Type losartan 25 mg tablet 25 mg PO DAILY 02/08/2510/28 Unknown History naproxen 500 mg tablet 500 mg PO BID 02/08/2502/08 Unknown History varenicline tartrate 0.5 mg tablet 0.5 mg PO DIRECT ED 02/08/25 02/08/25 Unknown History (Chantix) Physical Exam 2 Vital Signs: Vital Signs: Last Vital Signs Temp 98.0 F 02/12/25 14:58 Pulse 77 02/12/25 14:58 Resp 18 02/12/25 14:58 BP 161/79 H 02/12/25 14:58 Pulse Ox 98 02/12/25 14:58 O2 Del Method Room Air 02/12/25 14:58 O2 Flow Rate 2 02/11/25 22:00 FiO2 30 02/11/25 18:00 BMI result Body Mass Index 28.5 Neuro: Other: Mental Status: Alert and awake with normal spontaneity of speech fluency comprehension and affect. Cranial Nerves: CN II: Visual rodriguez full to confrontation, visual acuity intact. CN III, IV, : Pupils equal, round, reactive to light and accommodation. Extraocular movements are normal. CN V: Facial sensation is normal. CN VII: Facial movements symmetrical. CN VIII: Hearing intact to bedside conversation is normal. CN IX, X: Palate elevates symmetrically. CN XI: Shoulder shrug and head turn symmetrical. CN XII: Tongue midline without atrophy or fasciculations. Motor: Bulk and tone normal in all extremities. No significant muscle weakness in arms and legs. No drift. Reflexes: Deep tendon reflexes 2+ and symmetric. Plantar response down-going bilaterally. Coordination: [id number] is okay. Gait and Station: Cautious. Extrapyramidal: Full facial expressions and blinking. No rigidity. Movements are appropriate with no tremor or abnormality. Speech: Normal; no dysarthria or tremor. Results Labs 02/12/25 05:54 02/12/25 05:54 Labs: Short CBC 02/12/25 Range/Units 05:54 WBC 7.0 (4.8-10.8) X10*3/uL Hgb 15.0 (14.0-18.0) g/dl Hct 44.9 (42.0-52.0) % Plt Count 191 (160-400) X10*3/uL BMP 02/12/25 05:54 Sodium 143 Potassium 3.8 Chloride 111 H Carbon Dioxide 23 BUN 12 Creatinine 0.[address] did not reveal any significant abnormality, other than cavum septum pellucidum. Microbiology Microbiology Results: Microbiology 02/08/25 00:30 Sputum - Suctioned Gram Stain - Final 02/08/25 00:30 Sputum - Suctioned Sputum Culture - Final Streptococcus pyogenes (Grp A) 02/07/25 20:00 Blood - Venous Blood Culture - Preliminary No growth after 48 hours. 02/07/25 20:00 Blood - Venous Blood Culture - Preliminary No growth after 48 hours. Assessment and Plan (1) Altered mental status: Qualifiers: Altered mental status type: unspecified Qualified Code(s): R41.82 - Altered mental status, unspecified Status: Acute 59 years old man who said that he did not use any drugs but was found unresponsive at home in his tox screen was positive for fentanyl, opiates and marijuana. While being intubated in emergency room, he had flailing movements that might be due to cerebral hypoxemia. Seizure disorder was a past ability what seems less likely. Overall presentation is suggestive of toxic encephalopathy. His EEG did not reveal any significant abnormality. Mainstay of management is staying away from drugs of abuse. Procedures Date of Service Date of Service: 02/12/25
--- NOTE | 2025-02-12 16:45 | P.EN_ITS ---
Event Note Date of Service: 02/12/25 Event Note: Addiction consult placed for patient who presented to [facility] following suspected opioid overdose requiring intubation and ICU admission Patient seen by lay out drafter. Denies any substance use, reported that he smoked a marijuana blunt that may have been laced with fentanyl. It is unlikely that overdose occurred in this manner as fentanyl smoked in this fashion is rendered ineffective due to the high temp required for marijuana cigarette to burn. Meaning that even if smoked, fentanyl would no longer be an active substance--and not a cause for opioid overdose. He denied withdrawal or any interest in discussing resources, referrals or treatment for opioid use. Declined to meet with addiction medicine provider. Recommendations: -take home narcan at discharge -please re-consult should patient change his mind, or begin to display withdrawal sx. Time Spent With Patient Time: Total time managing care of this patient today ____ minutes.
[2025-02-13 02:51] VITALS: BP 148/92; PULSE 61
[2025-02-13 03:27] LABS: Glucose, Whole Blood 113 mg/dL (60-115)
--- NOTE | 2025-02-13 03:28 | PC.NURSE ---
Addendum entered by Lizzette Ceron RN 02/13/25 03:30: Vomit noted to be clear liquid. Original Note: Pt vomited in bathroom toilet at 0320. Pt states he feels dizzy and has not eaten any whole meals since hospitalization. POC checked with result of 113. Pt offered a snack, but he refused any food.
--- NOTE | 2025-02-13 04:00 | PC.NURSE ---
Pt noted to be tachycardic on heart monitor with HR in the 120s. RN went to pt room and pt was vomiting yellow bile into emesis bag. MD Arzate contacted, with one-time dose of zofran IVP prescribed and given.
[2025-02-13 05:46] VITALS: BMI 26.2
[2025-02-13 07:08] LABS: MANUAL DIFF FLAG NO
[2025-02-13 07:16] LABS: Hematocrit 47.8 % (42.0-52.0); Hemoglobin 16.0 g/dl (14.0-18.0); Imm Gran Abs Auto 0.02 X10*3/uL (0.00-0.03); Imm Gran Pct Auto 0.3 % (0.0-0.4); Lymphocytes Absolute Auto 2.4 X10*3/uL (1.2-4.9); Mean Corpuscular HGB Conc 33.5 g/dl (31.0-36.0); Mean Corpuscular Hemoglobin 29.8 pg (27.0-33.0); Mean Corpuscular Volume 89.0 fL (80.0-98.0); NRBC Abs Auto 0.000 X10*3/uL (0.0-0.012); NRBC Pct Auto 0.0 /100WBC (0.0-0.2); Platelet Count 218 X10*3/uL (160-400); Red Blood Count 5.37 X10*6/uL (4.60-5.80); White Blood Count 6.3 X10*3/uL (4.8-10.8)
[2025-02-13 07:32] LABS: Anion Gap 15 (12-20); Blood Urea Nitrogen 9 mg/dL (9-16); Calcium 9.3 mg/dL (8.4-10.2); Carbon Dioxide 26 mmol/L (22-29); Chloride 109 mmol/L (96-108); Creatinine Clr Calc Pharmacy 102.7; Estimated Glomerular Filt Rate > 60; Magnesium 2.1 mg/dL (1.6-2.6); Potassium 3.7 mmol/L (3.3-5.1); Sodium 146 mmol/L (135-145)
[2025-02-13 07:39] VITALS: BP 134/78; PULSE 60; RESP 20; TEMP 36.7; O2SAT 100
[2025-02-13] MEDS: 0.9 % Sodium Chloride Flush 3 ML SYRINGE IVFLUSH (08:47)
[2025-02-13 11:46] VITALS: BP 137/82; PULSE 76; RESP 20; TEMP 37.1; O2SAT 96
--- NOTE | 2025-02-13 12:54 | PM.DS ---
DS: Providers Provider Date of Service: 02/13/25 Date of admission: 02/07/25 19:23 Date of discharge: 02/13/25 Primary care physician: [facility] Consults: 02/12/25 11:15 Addiction Medicine Provider Routine Consulting Provider: Addiction Covering Reason for consultation: substance use; drug OD Has provider been notified: No 02/12/25 11:17 Consult to Neurology Routine Consulting Provider: [facility] Reason for consultation: possible seizure like activity started on keppra 02/13/25 01:35 Consult to Wound Care Routine Reason for consultation: questionable scattered rash (contact prec for ? scabies) DS: Diagnosis Discharge Diagnosis (1) Altered mental status: Status: Acute DS: Summary Hospital Course Hospital Course: From admission HPI: Date of Service: 02/07/25 Attending physician on admission: Brannon Rhodes Chief Complaint: Acute respiratory failure/drug overdose 59-year-old male with underlying history of hypertension, had presented to the emergency room by private vehicle.? Stories obtained from the ED physician who intubated the patient for airway protection.? Reportedly the patient did some shopping with his brother who dropped him off at some friend's, subsequently the patient had called his brother back to pick him up at the same place.? On his way home the patient was noted to become more and more somnolent and obtunded and by the time they got home the patient was no longer responsive.? Instead of calling 911 were of his family members drove him to the ER where he was found to be unresponsive, they had reported some cyanosis, the patient received 4 mg of intranasal Narcan with good effect.? Once the patient got into the emergency room the patient was noted to have some bizarre movements with staring and gazing, it was not clear whether or not he was having seizures, diazepam was administer with minor improvement, the patient was noted to be very hypertensive and tachycardic.? He was intubated for airway protection and despite of several doses of propofol the patient continued to be somewhat restless and fighting the vent until fentanyl was added.? He was also given 3 g of Keppra IV. The workup reveal a white count 14 0.4, H and H of 16.748.5 platelets of 331.? ABG showed pH of 7.39, pCO2 33, PO2 193, bicarb 20.? Sodium 143, potassium 3.6, chloride 108, carbon dioxide 16, anion gap 23, BUN 16, creatinine 1.33, glucose 186, calcium 9.1, magnesium 2.0.? Liver function normal.? Urinalysis negative, urine toxic screen positive for opioids, fentanyl and THC.? The patient underwent a head CT which revealed no intracranial pathology.? Post intubation x-ray reveals the tip of the tube by 3.5 cm from the gilberto and mild left middle lobe atelectasis.? Subsequently patient was admitted to the ICU for further care. ? Hospital course Pt was admitted to the hospital after be brought in by family in a private vehicle on 02/07 after being found unresponsive and cyanotic. After pt was administered 8 mg of intranasal Narcan pt became disoriented and agitated with bizarre and ?dramatic? movements. Pt was significantly tachypneic, hypertensive, tachycardic, diaphoretic, and in respiratory distress. Pt was then intubated in the emergency department for airway protection. Tox screen was noted to be positive for opiates, fentanyl, and marijuana. Initial concern was for possible seizure-like activity and pt was started on IV Keppra. EEG was negative. Pt was seen and evaluated by Neurology who thought overall presentation suggestive of toxic encephalopathy. Keppra has since been discontinued. Pt was extubated on 02/10 the pt continued to require dexmedetomidine gtt due to intermittent agitation. weaned off of dex drip and downgraded to the medical floor 02/12. Pt was also seen and evaluated by addiction medicine, where pt denied any opiate use and declined any addiction medicine services. Pt is currently feeling back to baseline and wishes to be discharged home. He will be discharged on amoxicillin 875 mg b.i.d. x1 day for total of 7 days of antibiotic treatment. Pt also be sent home with intranasal Narcan, and is strongly encouraged to abstain from any drugs of abuse. Pt should continue all other home medications. Time Attestation Discharge Coordination Time (in mins): 35 Quality: Safe Use of Opioids Does Pt have an Active Cancer Diagnosis on the Problem List?: No Quality: Stroke Does the patient have a stroke diagnosis?: No Physical Exam Exam: Exam: General: AOx3, no acute distress Resp: CTA bilaterally CVS: S1, S2, RRR GI: +BS, NT, no distention Skin: Warm, dry Neuro: Cranial nerves II-XII grossly intact bilaterally. Motor grossly intact bilaterally Extremities: No edema Psych: Appropriate affect Vital Signs: Vital Signs: Last Vital Signs Temp 98.7 F 02/13/25 11:46 Pulse 76 02/13/25 11:46 Resp 20 02/13/25 11:46 BP 137/82 02/13/25 11:46 Pulse Ox 96 02/13/25 11:46 O2 Del Method Room Air 02/13/25 11:46 O2 Flow Rate 2 02/11/25 22:00 FiO2 30 02/11/25 18:00 BMI result Body Mass Index 26.2 DS: Data Data Completed and Pending Labs on day of discharge: Laboratory Results - last 24 hr 02/13/25 02/13/25 03:23 06:09 WBC 6.3 RBC 5.37 Hgb 16.0 Hct 47.8 MCV 89.0 MCH 29.8 MCHC 33.5 RDW 13.1 Plt Count 218 MPV 10.3 Immature Gran % (Auto) 0.3 Neut % (Auto) 51.8 Lymph % (Auto) 37.3 [place] % (Auto) 8.9 Eos % (Auto) 1.4 Baso % (Auto) 0.3 Lymph # (Auto) 2.4 [place] # (Auto) 0.6 Eos # (Auto) 0.1 Baso # (Auto) 0.0 Abs Immat Gran (auto) 0.02 Absolute Neuts (auto) 3.3 Absolute Nucleated RBC 0.000 Nucleated RBC % (auto) 0.0 Sodium 146 H Potassium 3.7 Chloride 109 H Carbon Dioxide 26 Anion Gap 15 BUN 9 Creatinine 0.69 Estim Creat Clear Calc 102.7 Estimated GFR > 60 POC Glucose 113 Random Glucose 97 Calcium 9.3 Phosphorus 2.3 L Magnesium 2.1 Discharge Plan Discharge Anticipated Discharge Date/Time: 02/13/25 12:54 Patient Disposition: Home, Self-Care Discharge Diagnosis: Acute respiratory failure requiring intubation secondary to drug overdose Referrals: [facility] [Primary Care Provider, Primary Care] - 1 Week Discharge Medications: New amoxicillin-pot clavulanate 875-125 mg tablet 1 tab PO BID Qty: 3 0RF Rx Instructions: Take one tablet twice a day with food for the next day, starting the evening of 02/13 and ending the evening of 02/14. Continued losartan 25 mg tablet 25 mg PO DAILY naproxen 500 mg tablet 500 mg PO BID varenicline tartrate [Chantix] 0.5 mg Tablet 0.5 mg PO DIRECTED Rx Instructions: take 1 tablet by mouth daily on days 1-3; then 1 tablet twice daily (morning and evening) on days 4-7, then 1mg twice a day there after. Discharge Orders: Discharge Order (Routine); Ordered 02/13/25 Ordered By: Hortensia Desir Activity on Discharge: As tolerated Stand Alone Forms: Patient Portal Discharge page Print Language: Italian Care Plan Goals: See below Health Concerns: Opiate overdose Acute respiratory failure Opiate use disorder Aspiration pneumonia Seizure disorder Plan of Treatment: You were admitted to the hospital after becoming unresponsive and cyanotic in the community, concerning for opiate overdose. Tox screen was positive for opiates, fentanyl, and marijuana. You were initially given Narcan in the ED with some response. While in the ED you were noted to disoriented and had significant agitation with hyperventilation and diaphoresis. You eventually needed intubation in order to protect her airway and were monitored in the ICU for a total of 6 days. You were extubated on 02/10 and brought to the medical floor on 02/12. You were seen and evaluated by addiction medicine, but denied any substance use and declined their services. You will be discharged home with Narcan and an additional 1 day of amoxicillin. -- for aspiration pneumonia continue taking amoxicillin 875 mg twice a day for the next day, started in the evening of 02/13 and ending the evening of 02/14 -- for opiate overdose you will be sent home with intranasal Narcan to be administered in each nostril in the case of pt becoming unresponsive -- your strongly encouraged to abstain from any opiate use in the community -- continue all other home medications Assessment: See discharge summary
[2025-02-13] MEDS: Naloxone HCl Nasal TAKE HOME 4 MG SPRAY 8 MG NOSTRILALT (14:12)
--- NOTE | 2025-02-13 14:20 | MHC.CM.PN ---
PT CLEARED TO DC HOME TODAY WITH NO SERVICES VIA FAMILY TRANSPORT
[2025-02-14 09:29] LABS: Scabies Exam Not Observed (Not Observed)
== END 2025-02-13 14:22 | disposition home or self-care (01) | DRG 812 ==
LOC: HO.ED 19:01 → HO.EDOVER 19:29 → HO.ICU 19:29 → HO.IMC 02-12 11:55
PROVIDERS: Internal Medicine Critical Care Medicine; Nurse Practitioner Family; Admitting Provider Physician Assistant Medical; Emergency Provider Emergency Medicine; PCP Dentist General Practice; Visit Provider Student in an Organized Health Care Education/Training Program
DX: T40.2X1A Poisoning by other opioids, accidental (unintentional), initial encounter (principal); J96.01 Acute respiratory failure with hypoxia; G92.8 Other toxic encephalopathy; I67.4 Hypertensive encephalopathy; R73.9 Hyperglycemia, unspecified; J98.11 Atelectasis; I10 Essential (primary) hypertension; Z79.899 Other long term (current) drug therapy
CPT/HCPCS: 36415; 70450; 71045; 80048; 80053; 80076; 80307; 81003; 82040; 82803; 82947; 83036; 83605; 83735; 84100; 84484; 85007; 85025; 85027; 85610; 87040; 87070; 87147; 87205; 87220; 92610; 93005; 94002; 94003; 94640; 94799; 95819; 99285; J0131; J0360; J0613; J1650; J1938; J1953; J2250; J2270; J2405; J2470; J2543; J2704; J3010; J3360; J7120; P9047; S9485

== ENCOUNTER → 2025-02-07 17:02 | Outpatient (BNV) | payer MEDICAID, SELFPAY | PROVIDERS: Admitting Provider Physician Assistant Medical; Emergency Provider Emergency Medicine; PCP Dentist General Practice; Visit Provider Internal Medicine Cardiovascular Disease | DX: R94.31 Abnormal electrocardiogram [ECG] [EKG] (principal); T50.901A Poisoning by unspecified drugs, medicaments and biological substances, accidental (unintentional), initial encounter | CPT/HCPCS: 93010 ==

== ENCOUNTER → 2025-02-07 17:08 | Outpatient (BNV) | payer MEDICAID, SELFPAY | PROVIDERS: Emergency Provider Emergency Medicine; PCP Dentist General Practice; Visit Provider Radiology Diagnostic Radiology | DX: R41.82 Altered mental status, unspecified (principal); J98.11 Atelectasis | CPT/HCPCS: 70450; 71045 ==

== ENCOUNTER 2025-02-07 19:23 | Outpatient (BNV) | payer MEDICAID, SELFPAY | END 2025-02-08 15:53 | PROVIDERS: Admitting Provider Physician Assistant Medical; Emergency Provider Emergency Medicine; PCP Dentist General Practice; Visit Provider Internal Medicine Cardiovascular Disease | DX: R00.1 Bradycardia, unspecified (principal) | CPT/HCPCS: 93010 ==

== ENCOUNTER → 2025-02-07 19:23 | Outpatient (BNV) | payer MEDICAID, SELFPAY | PROVIDERS: Admitting Provider Physician Assistant Medical; Emergency Provider Emergency Medicine; PCP Dentist General Practice; Visit Provider Physician Assistant Medical | DX: R41.82 Altered mental status, unspecified (principal) | CPT/HCPCS: 99239; 99499 ==

== ENCOUNTER → 2025-02-07 19:23 | Outpatient (BNV) | payer MEDICAID, SELFPAY | PROVIDERS: Admitting Provider Physician Assistant Medical; Emergency Provider Emergency Medicine; PCP Dentist General Practice; Visit Provider Internal Medicine Critical Care Medicine | DX: J96.01 Acute respiratory failure with hypoxia (principal); T40.2X1A Poisoning by other opioids, accidental (unintentional), initial encounter; R41.82 Altered mental status, unspecified | CPT/HCPCS: 99291 ==

== ENCOUNTER → 2025-02-07 19:23 | Outpatient (BNV) | payer OTHER, SELFPAY | PROVIDERS: Admitting Provider Physician Assistant Medical; Emergency Provider Emergency Medicine; PCP Dentist General Practice; Visit Provider Nurse Practitioner Psychiatric/Mental Health | DX: F11.10 Opioid abuse, uncomplicated (principal) | CPT/HCPCS: 99499 ==

== ENCOUNTER → 2025-02-07 19:23 | Outpatient (BNV) | payer MEDICAID, SELFPAY | PROVIDERS: Admitting Provider Physician Assistant Medical; Emergency Provider Emergency Medicine; PCP Dentist General Practice; Visit Provider Psychiatry & Neurology Neurology | DX: R41.82 Altered mental status, unspecified (principal) | CPT/HCPCS: 99222 ==